=== PATIENT | male | born 1940 | race Caucasian/White ===

== ENCOUNTER 2017-04-15 09:25 | Inpatient (IN) | payer MEDICARE, OTHER ==
[2017-04-15] MEDS ORDERED: SODIUM CHLORIDE 0.9% 1,000 ML IV STA (10:25)
[2017-04-15] MEDS ORDERED: SODIUM CHLORIDE 0.9% 500 ML IV STA (10:25)
--- NOTE | 2017-04-15 10:28 | ED ---
Weakness HPI - General Chief complaint: Weakness Stated complaint: WEAKNESS, CHEST PRESSURE Time Seen by Provider: 04/15/17 10:00 Source: patient, RN notes reviewed Limitations: no limitations - History of Present Illness Initial comments: This is a 76-year-old male who came to the emergency department for evaluation of feeling bad for the past 3 days he has generalized weakness cough with phlegm he's not sure what color shortness of breath lethargy some chest pain with breathing and exertion. 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 He is a decreased oral intake. No other complaints at this time MD Complaint: generalized weakness - Related Data Home Medications Medication Instructions Recorded Confirmed Atorvastatin [Lipitor] 20 mg PO MOFR@2100 11/16/15 04/15/17 Cetirizine HCl 10 mg PO DAILY 11/16/15 04/15/17 Cholecalciferol [Vitamin D3] 2,000 unit PO DAILY 11/16/15 04/15/17 Finasteride [Proscar] 5 mg PO DAILY 11/16/15 04/15/17 Losartan Potassium 100 mg PO HS 11/16/15 04/15/17 Metoprolol Tartrate [Lopressor] 50 mg PO BID 11/16/15 04/15/17 Multivitamins, Thera [Multivitamin] 1 tab PO DAILY 11/16/15 04/15/17 [place]-3 Fatty Acids/Fish Oil [Fish 1 cap PO DAILY 11/16/15 04/15/17 Oil 1,000 mg Softgel] Vitamin E 1,000 unit PO DAILY 11/16/15 04/15/17 Clopidogrel [Plavix] 75 mg PO DAILY 04/15/17 04/15/17 Hylands Leg Cramps Otc 1 tab PO DAILY PRN 04/15/17 04/15/17 Allergies Allergy/AdvReac Type Severity Reaction Status Date / Time Plolbbo-Lex-Lug Reductase AdvReac LEG CRAMPS Verified 04/15/17 10:17 Inhibitor Review of Systems ROS Statement: Those systems with pertinent positive or pertinent negative responses have been documented in the HPI. ROS Other: All systems not noted in ROS Statement are negative. Past Medical History Past Medical History: Hyperlipidemia, Hypertension, Myocardial Infarction (CT) Additional Past Medical History / Comment(s): UNKNOWN DATE OF CT, ENVIRONMENTAL ALLERGIES, BACK PAIN. , LEFT INGUINAL HERNIA. 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 Last Myocardial Infarction Date:: UNKNOWN History of Any Multi-Drug Resistant Organisms: None Reported Past Surgical History: Heart Catheterization, Heart Catheterization With Stent, Orthopedic Surgery, Tonsillectomy Additional Past Surgical History / Comment(s): JONY SHOULDER SURGERIES, VASECTOMY , . HEART CATH WITH STENT FEB 2001, HEART CATH 2001, 2002 & 2008. Past Anesthesia/Blood Transfusion Reactions: No Reported Reaction Date of Last Stent Placement:: FEBRUARY 2001 Past Psychological History: No Psychological Hx Reported Smoking Status: Former smoker Past Alcohol Use History: Daily Past Drug Use History: None Reported - Past Family History Mother Family Medical History: No Reported History General Exam - General Exam Comments Initial Comments: This is a well-developed well-nourished awake alert oriented 3 male Limitations: no limitations General appearance: alert, in no apparent distress Head exam: Present: atraumatic, normocephalic, normal inspection Eye exam: Present: normal appearance, PERRL, EOMI. Absent: scleral icterus, conjunctival injection, periorbital swelling ENT exam: Present: mucous membranes dry Neck exam: Present: normal inspection. Absent: tenderness, meningismus, lymphadenopathy Respiratory exam: Present: decreased breath sounds, other (Some right-sided wheezes with cough). Absent: respiratory distress, wheezes, rales, rhonchi, stridor Cardiovascular Exam: Present: normal rhythm, tachycardia, normal heart sounds. Absent: systolic murmur, diastolic murmur, rubs, gallop, clicks GI/Abdominal exam: Present: soft, normal bowel sounds. Absent: distended, tenderness, guarding, rebound, rigid Extremities exam: Present: normal inspection, full ROM, normal capillary refill. Absent: tenderness, pedal edema, joint swelling, calf tenderness Back exam: Present: normal inspection Neurological exam: Present: alert, oriented X3, CN II-XII intact Psychiatric exam: Present: normal affect, normal mood Skin exam: Present: warm, dry, intact, normal color. Absent: rash Course Vital Signs 04/15/17 04/15/17 04/15/17 09:38 10:03 10:38 Temperature 100.7 F H Pulse Rate 95 93 Respiratory 18 Rate Blood Pressure 175/85 147/85 O2 Sat by Pulse 97 93 L Oximetry 04/15/17 04/15/17 04/15/17 11:21 12:20 14:39 Temperature 99.9 F H Pulse Rate 91 89 85 Respiratory 20 18 18 Rate Blood Pressure 157/84 127/93 149/96 O2 Sat by Pulse 99 96 98 Oximetry EKG Findings - EKG Results: EKG: interpreted by ABUNDIO, sinus rhythm (Sinus tachycardia rate of 101. Interval 140 QRS duration 70 QT since QTC of 340/440 frequent unifocal PVCs) Medical Decision Making - Medical Decision Making I did discuss findings with the patient and with Dr. Laguerre. Patient be admitted he does have influenza as well as elevated troponin dehydration and renal insufficiency. - Lab Data Result diagrams: 04/15/17 10:00 04/15/17 10:00 Lab Results 04/15/17 04/15/17 04/15/17 Range/Units 10:00 10:00 10:00 WBC 4.8 (3.8-10.6) k/uL RBC 4.65 (4.30-5.90) m/uL Hgb 15.1 (13.0-17.5) gm/dL Hct 44.9 (39.0-53.0) % MCV 96.5 (80.0-100.0) fL MCH 32.4 (25.0-35.0) pg MCHC 33.6 (31.0-37.0) g/dL RDW 12.2 (11.5-15.5) % Plt Count 102 L (150-450) k/uL Neutrophils % 84 % Lymphocytes % 5 % Monocytes % 8 % Eosinophils % 0 % Basophils % 1 % Neutrophils # 4.0 (1.3-7.7) k/uL Lymphocytes # 0.3 L (1.0-4.8) k/uL Monocytes # 0.4 (0-1.0) k/uL Eosinophils # 0.0 (0-0.7) k/uL Basophils # 0.0 (0-0.2) k/uL PT (9.0-12.0) sec INR (<1.2) APTT (22.0-30.0) sec Sodium 140 (137-145) mmol/L Potassium 4.9 (3.5-5.1) mmol/L Chloride 101 (98-107) mmol/L Carbon Dioxide 25 (22-30) mmol/L Anion Gap 14 mmol/L BUN 20 (9-20) mg/dL Creatinine 1.50 H (0.66-1.25) mg/dL Est GFR (MDRD) Af Amer 55 (>60 ml/min/1.73 sqM) Est GFR (MDRD) Non-Af 46 (>60 ml/min/1.73 sqM) Glucose 130 H (74-99) mg/dL Plasma Lactic Acid John (0.7-2.0) mmol/L Calcium 9.8 (8.4-10.2) mg/dL Magnesium 1.9 (1.6-2.3) mg/dL Total Bilirubin 0.9 (0.2-1.3) mg/dL AST 39 (17-59) U/L ALT 29 (21-72) U/L Alkaline Phosphatase 52 (38-126) U/L Total Creatine Kinase 314 H (55-170) U/L CK-MB (CK-2) 0.7 (0.0-2.4) ng/mL CK-MB (CK-2) Rel Index 0.2 Troponin I 0.038 H* (0.000-0.034) ng/mL NT-Pro-B Natriuret Pep pg/mL Total Protein 6.8 (6.3-8.2) g/dL Albumin 4.3 (3.5-5.0) g/dL Influenza Type A RNA (Not Detectd) Influenza Type B (PCR) (Not Detectd) 04/15/17 04/15/17 04/15/17 Range/Units 10:00 10:00 10:00 WBC (3.8-10.6) k/uL RBC (4.30-5.90) m/uL Hgb (13.0-17.5) gm/dL Hct (39.0-53.0) % MCV (80.0-100.0) fL MCH (25.0-35.0) pg MCHC (31.0-37.0) g/dL RDW (11.5-15.5) % Plt Count (150-450) k/uL Neutrophils % % Lymphocytes % % Monocytes % % Eosinophils % % Basophils % % Neutrophils # (1.3-7.7) k/uL Lymphocytes # (1.0-4.8) k/uL Monocytes # (0-1.0) k/uL Eosinophils # (0-0.7) k/uL Basophils # (0-0.2) k/uL PT (9.0-12.0) sec INR (<1.2) APTT (22.0-30.0) sec Sodium (137-145) mmol/L Potassium (3.5-5.1) mmol/L Chloride (98-107) mmol/L Carbon Dioxide (22-30) mmol/L Anion Gap mmol/L BUN (9-20) mg/dL Creatinine (0.66-1.25) mg/dL Est GFR (MDRD) Af Amer (>60 ml/min/1.73 sqM) Est GFR (MDRD) Non-Af (>60 ml/min/1.73 sqM) Glucose (74-99) mg/dL Plasma Lactic Acid John 1.2 (0.7-2.0) mmol/L Calcium (8.4-10.2) mg/dL Magnesium (1.6-2.3) mg/dL Total Bilirubin (0.2-1.3) mg/dL AST (17-59) U/L ALT (21-72) U/L Alkaline Phosphatase (38-126) U/L Total Creatine Kinase (55-170) U/L CK-MB (CK-2) (0.0-2.4) ng/mL CK-MB (CK-2) Rel Index Troponin I (0.000-0.034) ng/mL NT-Pro-B Natriuret Pep 1060 pg/mL Total Protein (6.3-8.2) g/dL Albumin (3.5-5.0) g/dL Influenza Type A RNA Detected H (Not Detectd) Influenza Type B (PCR) Not Detected (Not Detectd) 04/15/17 Range/Units 10:00 WBC (3.8-10.6) k/uL RBC (4.30-5.90) m/uL Hgb (13.0-17.5) gm/dL Hct (39.0-53.0) % MCV (80.0-100.0) fL MCH (25.0-35.0) pg MCHC (31.0-37.0) g/dL RDW (11.5-15.5) % Plt Count (150-450) k/uL Neutrophils % % Lymphocytes % % Monocytes % % Eosinophils % % Basophils % % Neutrophils # (1.3-7.7) k/uL Lymphocytes # (1.0-4.8) k/uL Monocytes # (0-1.0) k/uL Eosinophils # (0-0.7) k/uL Basophils # (0-0.2) k/uL PT 10.4 (9.0-12.0) sec INR 1.1 (<1.2) APTT 24.5 (22.0-30.0) sec Sodium (137-145) mmol/L Potassium (3.5-5.1) mmol/L Chloride (98-107) mmol/L Carbon Dioxide (22-30) mmol/L Anion Gap mmol/L BUN (9-20) mg/dL Creatinine (0.66-1.25) mg/dL Est GFR (MDRD) Af Amer (>60 ml/min/1.73 sqM) Est GFR (MDRD) Non-Af (>60 ml/min/1.73 sqM) Glucose (74-99) mg/dL Plasma Lactic Acid John (0.7-2.0) mmol/L Calcium (8.4-10.2) mg/dL Magnesium (1.6-2.3) mg/dL Total Bilirubin (0.2-1.3) mg/dL AST (17-59) U/L ALT (21-72) U/L Alkaline Phosphatase (38-126) U/L Total Creatine Kinase (55-170) U/L CK-MB (CK-2) (0.0-2.4) ng/mL CK-MB (CK-2) Rel Index Troponin I (0.000-0.034) ng/mL NT-Pro-B Natriuret Pep pg/mL Total Protein (6.3-8.2) g/dL Albumin (3.5-5.0) g/dL Influenza Type A RNA (Not Detectd) Influenza Type B (PCR) (Not Detectd) - Radiology Data Radiology results: report reviewed, image reviewed Disposition Clinical Impression: Influenza A, Febrile illness, acute, Elevated troponin I level, Dehydration, Renal insufficiency syndrome Disposition: ADMITTED IP TO THIS [facility] Condition: Stable Referrals: Ramya James DO [Primary Care Provider] - 1-2 days
[2017-04-15 10:56] LABS: INR 1.1 (<1.2); Partial Thromboplastin Time 24.5 sec (22.0-30.0); Prothrombin Time 10.4 sec (9.0-12.0)
[2017-04-15 10:59] LABS: Albumin 4.3 g/dL (3.5-5.0); Calcium 9.8 mg/dL (8.4-10.2); Magnesium 1.9 mg/dL (1.6-2.3); Potassium 4.9 mmol/L (3.5-5.1); Total Bilirubin 0.9 mg/dL (0.2-1.3); Total Protein 6.8 g/dL (6.3-8.2)
--- NOTE | 2017-04-15 11:03 | XR ---
EXAMINATION TYPE: XR chest 2V DATE OF EXAM: 04/15/2017 COMPARISON: NONE TECHNIQUE: PA and lateral views submitted. HISTORY: Difficulty breathing FINDINGS: The lungs are clear and there is no pneumothorax, pleural effusion, or focal pneumonia. Hypertrophi c change of the spine. Surgical change right shoulder and arthropathy involving the AC joints. Athero sclerotic change aorta. No overt failure. IMPRESSION: 1. No acute process.
[2017-04-15 11:13] LABS: Basophils % (A) 1 %; Eosinophils % (A) 0 %; HCT 44.9 % (39.0-53.0); HGB 15.1 gm/dL (13.0-17.5); Lymphocytes # (A) 0.3 k/uL (1.0-4.8); Lymphocytes % (A) 5 %; MCH 32.4 pg (25.0-35.0); MCHC 33.6 g/dL (31.0-37.0); MCV 96.5 fL (80.0-100.0); Mean Platelet Volume 8.4; Monocytes # (A) 0.4 k/uL (0-1.0); Monocytes % (A) 8 %; Neutrophils % (A) 84 %; Platelet Count 102 k/uL (150-450); RBC 4.65 m/uL (4.30-5.90); RDW 12.2 % (11.5-15.5); WBC 4.8 k/uL (3.8-10.6)
[2017-04-15 11:27] LABS: Creatine Kinase MB 0.7 ng/mL (0.0-2.4)
[2017-04-15 11:37] LABS: Troponin I 0.038 ng/mL (0.000-0.034)
[2017-04-15] MEDS ORDERED: OSELTAMIVIR 75 MG CAP PO STA (15:31)
[2017-04-15] MEDS ORDERED: NALOXONE 0.4 MG/ML 1 ML VIAL IV PRN (16:12)
[2017-04-15] MEDS ORDERED: ACETAMINOPHEN TAB 325 MG TAB PO PRN (16:12)
[2017-04-15] MEDS ORDERED: HEPARIN SODIUM,PORCINE 5,000 UNIT/ML 1 ML VIAL IV ONE (16:17)
[2017-04-15] MEDS ORDERED: NITROGLYCERIN SL TABS 0.4 MG TAB SUBLINGUAL PRN (16:17)
[2017-04-15] MEDS: HEPARIN SOD,PORK IN 0.45% NACL 25,000 UNIT in 0.45% NACL 1 500ML.BAG IV SCH (17:45)
[2017-04-15] MEDS: SODIUM CHLORIDE 0.9% 1,000 ML IV SCH (18:41)
[2017-04-15 19:04] LABS: Creatine Kinase MB 1.3 ng/mL (0.0-2.4); Troponin I 0.025 ng/mL (0.000-0.034)
[2017-04-15] MEDS ORDERED: ATORVASTATIN 20 MG TAB PO SCH (21:00)
[2017-04-15] MEDS: METOPROLOL TARTRATE 50 MG TAB PO SCH (21:15)
[2017-04-15] MEDS: LOSARTAN 50 MG TAB PO SCH (21:15)
[2017-04-16 00:11] LABS: Creatine Kinase MB 1.8 ng/mL (0.0-2.4); Troponin I 0.033 ng/mL (0.000-0.034)
[2017-04-16] MEDS ORDERED: OSELTAMIVIR 60 MG/10 ML ORAL SYRINGE PO SCH (06:00)
[2017-04-16 06:02] LABS: Cholesterol 115 mg/dL (<200); HDL Cholesterol 51 mg/dL (40-60); LDL Cholesterol,Calculated 53 mg/dL (0-99); Triglycerides 54 mg/dL (<150)
[2017-04-16] MEDS: SODIUM CHLORIDE 0.9% 1,000 ML IV SCH ×2 (06:11→17:54)
[2017-04-16] MEDS: ASPIRIN 325 MG TAB PO SCH (07:48)
[2017-04-16] MEDS: CLOPIDOGREL 75 MG TAB PO SCH (07:48)
[2017-04-16] MEDS: FINASTERIDE 5 MG TAB PO SCH (07:49)
[2017-04-16] MEDS: METOPROLOL TARTRATE 50 MG TAB PO SCH ×2 (07:49→19:58)
[2017-04-16 09:32] LABS: Basophils % (A) 0 %; Eosinophils % (A) 1 %; HCT 41.7 % (39.0-53.0); HGB 14.2 gm/dL (13.0-17.5); Lymphocytes # (A) 0.6 k/uL (1.0-4.8); Lymphocytes % (A) 20 %; MCH 32.6 pg (25.0-35.0); MCV 95.8 fL (80.0-100.0); Mean Platelet Volume 8.8; Monocytes # (A) 0.3 k/uL (0-1.0); Monocytes % (A) 11 %; Neutrophils # (A) 1.8 k/uL (1.3-7.7); Neutrophils % (A) 64 %; RBC 4.36 m/uL (4.30-5.90); RDW 12.3 % (11.5-15.5); WBC 2.7 k/uL (3.8-10.6)
[2017-04-16 09:48] LABS: Platelet Count 85 k/uL (150-450)
[2017-04-16 09:54] LABS: ALT 34 U/L (21-72); AST 45 U/L (17-59); Albumin 3.5 g/dL (3.5-5.0); Alkaline Phosphatase 44 U/L (38-126); Anion Gap 12 mmol/L; Blood Urea Nitrogen 24 mg/dL (9-20); Calcium 9.2 mg/dL (8.4-10.2); Carbon Dioxide 24 mmol/L (22-30); Chloride 105 mmol/L (98-107); Glucose 101 mg/dL (74-99); Potassium 4.3 mmol/L (3.5-5.1); Sodium 141 mmol/L (137-145); Total Bilirubin 0.5 mg/dL (0.2-1.3); Total Protein 5.7 g/dL (6.3-8.2)
--- NOTE | 2017-04-16 10:28 | P.HPIM ---
History of Present Illness H&P Date: 04/16/17 Chief Complaint: Cough and shortness of breath This is a 76-year-old male, patient of Dr. James. He has a known past medical history of hypertension, myocardial infarction, coronary artery disease with cardiac stent and hyperlipidemia. Patient presents to the emergency room with complaints of cough and shortness of breath and not feeling well for the past 3 days. Also having some generalized weakness. He's had 2 days of diarrhea with multiple watery stools. Last stool was yesterday. No vomiting. Patient has been admitted to the hospital with influenza A and dehydration. She 's been started on Tamiflu and IV fluids. He had a temp of 100.7 lactic acid was 1.2. Creatinine elevated at 1.50. He had a mildly elevated troponin 0.038 cardiology consulted. Chest x-ray negative. EKG showing sinus tach with a heart rate of 101 with occasional PVCs. Patient denies any chest pain. Denies any burning with urination. Reports adequate urine output. He does report having poor oral intake over a couple of days. Patient reports last stress test was last year and reported normal. Heart catheterization was in 2008 no new stents at that time. He did report that his one stent was completely occluded. Review of Systems Please refer to HPI otherwise unremarkable Past Medical History Past Medical History: Hyperlipidemia, Hypertension, Myocardial Infarction (DC) Additional Past Medical History / Comment(s): UNKNOWN DATE OF DC, ENVIRONMENTAL ALLERGIES, BACK PAIN. , LEFT INGUINAL HERNIA. 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 Last Myocardial Infarction Date:: UNKNOWN History of Any Multi-Drug Resistant Organisms: None Reported Past Surgical History: Heart Catheterization, Heart Catheterization With Stent, Orthopedic Surgery, Tonsillectomy Additional Past Surgical History / Comment(s): JONY SHOULDER SURGERIES, VASECTOMY , . HEART CATH WITH STENT FEB 2001, HEART CATH 2001, 2002 & 2008. Past Anesthesia/Blood Transfusion Reactions: No Reported Reaction Date of Last Stent Placement:: FEBRUARY 2001 Past Psychological History: No Psychological Hx Reported Smoking Status: Former smoker Past Alcohol Use History: Daily Additional Past Alcohol Use History / Comment(s): SMOKED 23 YEARS, QUIT May. SMOKED 2 1/2 PPD. DRINKS 2-3 GLASSES OF WINE DAILY. Past Drug Use History: None Reported - Past Family History Mother Family Medical History: No Reported History Medications and Allergies Home Medications Medication Instructions Recorded Confirmed Type Atorvastatin [Lipitor] 20 mg PO MOFR@2100 11/16/15 04/15/17 History Cetirizine HCl 10 mg PO DAILY 11/16/15 04/15/17 History Cholecalciferol [Vitamin D3] 2,000 unit PO DAILY 11/16/15 04/15/17 History Finasteride [Proscar] 5 mg PO DAILY 11/16/15 04/15/17 History Losartan Potassium 100 mg PO HS 11/16/15 04/15/17 History Metoprolol Tartrate [Lopressor] 50 mg PO BID 11/16/15 04/15/17 History Multivitamins, Thera [Multivitamin] 1 tab PO DAILY 11/16/15 04/15/17 History [place]-3 Fatty Acids/Fish Oil [Fish 1 cap PO DAILY 11/16/15 04/15/17 History Oil 1,000 mg Softgel] Vitamin E 1,000 unit PO DAILY 11/16/15 04/15/17 History Clopidogrel [Plavix] 75 mg PO DAILY 04/15/17 04/15/17 History Hylands Leg Cramps Otc 1 tab PO DAILY PRN 04/15/17 04/15/17 History Allergies Allergy/AdvReac Type Severity Reaction Status Date / Time Zmqmysg-Uah-Eer Reductase AdvReac LEG CRAMPS Verified 04/15/17 10:17 Inhibitor Physical Exam Vitals: Vital Signs Temp Pulse Pulse Resp BP BP Pulse Ox 04/16/17 08:00 65 16 04/16/17 07:58 97.3 F L 65 16 135/81 96 04/16/17 04:00 97.1 F L 68 18 138/79 94 L 04/16/17 00:00 96.5 F L 82 18 160/84 94 L 04/15/17 20:00 99 F 91 18 130/73 96 04/15/17 17:53 97.6 F 76 18 166/86 98 04/15/17 16:52 97.2 F L 80 18 164/86 100 04/15/17 16:31 76 18 148/79 98 04/15/17 15:31 18 152/84 98 04/15/17 14:39 99.9 F H 85 18 149/96 98 04/15/17 12:20 89 18 127/93 96 04/15/17 11:21 91 20 157/84 99 02/12/18 10:38 93 18 147/85 93 L Intake and Output 04/15/17 04/16/17 04/16/17 22:59 06:59 14:59 Intake Total 68.392 Balance 68.392 Intake: Intake, IV Titration 68.392 Amount Heparin Sod,Pork in 0.45% 68.392 NaCl 25,000 unit In 0.45 % NaCl 1 500ml.bag @ 12 UNITS/KG/HR 19.92 mls/hr IV .Q24H [facility] Rx#: [id number] Other: Voiding Method Toilet Toilet # Voids 1 2 # Bowel Movements 1 Weight 73.3 kg Head normocephalic Neck supple Lungs clear to auscultation bilaterally no wheezing or crackles Heart regular rate and rhythm S1-S2, no rub or gallop Abdomen is soft nontender nondistended positive bowel sounds no hepatosplenomegaly Extremities no edema Neuro alert and orientated to 3 Results CBC & Chem 7: 04/16/17 03:34 04/16/17 03:34 Labs: Abnormal Lab Results - Last 24 Hours (Table) 04/15/17 04/15/17 04/15/17 Range/Units 10:00 10:00 10:00 WBC (3.8-10.6) k/uL Plt Count 102 L (150-450) k/uL Lymphocytes # 0.3 L (1.0-4.8) k/uL APTT (22.0-30.0) sec BUN (9-20) mg/dL Creatinine 1.50 H (0.66-1.25) mg/dL Glucose 130 H (74-99) mg/dL Total Creatine Kinase 314 H (55-170) U/L Troponin I 0.038 H* (0.000-0.034) ng/mL Total Protein (6.3-8.2) g/dL Influenza Type A RNA (Not Detectd) 04/15/17 04/15/17 04/15/17 Range/Units 10:00 18:22 20:14 WBC (3.8-10.6) k/uL Plt Count (150-450) k/uL Lymphocytes # (1.0-4.8) k/uL APTT 118.4 H* (22.0-30.0) sec BUN (9-20) mg/dL Creatinine (0.66-1.25) mg/dL Glucose (74-99) mg/dL Total Creatine Kinase 349 H (55-170) U/L Troponin I (0.000-0.034) ng/mL Total Protein (6.3-8.2) g/dL Influenza Type A RNA Detected H (Not Detectd) 04/15/17 04/16/17 04/16/17 Range/Units 23:03 03:34 03:34 WBC 2.7 L (3.8-10.6) k/uL Plt Count 85 L (150-450) k/uL Lymphocytes # 0.6 L (1.0-4.8) k/uL APTT 56.0 H (22.0-30.0) sec BUN (9-20) mg/dL Creatinine (0.66-1.25) mg/dL Glucose (74-99) mg/dL Total Creatine Kinase 400 H (55-170) U/L Troponin I (0.000-0.034) ng/mL Total Protein (6.3-8.2) g/dL Influenza Type A RNA (Not Detectd) 04/16/17 Range/Units 03:34 WBC (3.8-10.6) k/uL Plt Count (150-450) k/uL Lymphocytes # (1.0-4.8) k/uL APTT (22.0-30.0) sec BUN 24 H (9-20) mg/dL Creatinine (0.66-1.25) mg/dL Glucose 101 H (74-99) mg/dL Total Creatine Kinase (55-170) U/L Troponin I (0.000-0.034) ng/mL Total Protein 5.7 L (6.3-8.2) g/dL Influenza Type A RNA (Not Detectd) Thrombosis Risk Factor Assmnt - Choose All That Apply Any of the Below Risk Factors Present?: Yes Each Factor Represents 1 point: Obesity (BMI >25) Other Risk Factors: Yes Each Risk Factor Represents 3 Points: Age 75 years or older Thrombosis Risk Factor Assessment Total Risk Factor Score: 4 Thrombosis Risk Factor Assessment Level: Moderate Risk Assessment and Plan Assessment: 1. Influenza A positive: Started on Tamiflu for 5 days 2. Acute kidney injury secondary to dehydration. Patient receiving IV fluids. Creatinine has shown improvement from 1.50-1.08 3. Mildly elevated troponin at 0.038. Possibly related to dehydration and acute kidney injury. However, patient does have cardiac history he will be evaluated by cardiology is currently on IV heparin. 4. Diarrhea: Check stool for C. diff and neurovirus. Continue with IV fluids. 5. Essential hypertension 6. Hyperlipidemia 7. History of Coronary artery disease with cardiac stent and previous DC GI prophylaxis Pepcid and DVT prophylaxis IV heparin Time with Patient: Greater than 30 (Greater than 50% of the total time spent in counseling and coordination of care.I performed an examination of the patient and discussed their management with the physician Regroover. I have reviewed the Physician Regroover's notes and agree with the documented findings and plan of care)
[2017-04-16] MEDS: LORATADINE 10 MG TAB PO SCH (11:23)
[2017-04-16] MEDS ORDERED: MULTIVITAMINS, THERA 1 EACH TAB PO SCH (12:00)
[2017-04-16] MEDS ORDERED: CHOLECALCIFEROL 1,000 UNIT TAB PO SCH (12:00)
[2017-04-16] MEDS: HEPARIN SOD,PORK IN 0.45% NACL 25,000 UNIT in 0.45% NACL 1 500ML.BAG IV SCH (15:07)
[2017-04-16] MEDS: OSELTAMIVIR 75 MG CAP PO SCH (17:55)
[2017-04-16] MEDS: LOSARTAN 50 MG TAB PO SCH (19:58)
[2017-04-17 06:08] LABS: Basophils % (A) 1 %; Eosinophils # (A) 0.1 k/uL (0-0.7); Eosinophils % (A) 2 %; HCT 39.3 % (39.0-53.0); HGB 12.7 gm/dL (13.0-17.5); Lymphocytes # (A) 0.6 k/uL (1.0-4.8); Lymphocytes % (A) 24 %; MCH 32.2 pg (25.0-35.0); MCHC 32.4 g/dL (31.0-37.0); MCV 99.2 fL (80.0-100.0); Mean Platelet Volume 8.2; Monocytes # (A) 0.3 k/uL (0-1.0); Monocytes % (A) 10 %; Neutrophils # (A) 1.7 k/uL (1.3-7.7); Neutrophils % (A) 63 %; RBC 3.96 m/uL (4.30-5.90); WBC 2.7 k/uL (3.8-10.6)
[2017-04-17 06:19] LABS: Platelet Count 78 k/uL (150-450)
[2017-04-17 06:20] LABS: ALT 33 U/L (21-72); AST 42 U/L (17-59); Alkaline Phosphatase 33 U/L (38-126); Anion Gap 10 mmol/L; Blood Urea Nitrogen 17 mg/dL (9-20); Calcium 8.8 mg/dL (8.4-10.2); Carbon Dioxide 23 mmol/L (22-30); Chloride 109 mmol/L (98-107); Glucose 96 mg/dL (74-99); Potassium 4.1 mmol/L (3.5-5.1); Sodium 142 mmol/L (137-145); Total Bilirubin 0.4 mg/dL (0.2-1.3); Total Protein 5.1 g/dL (6.3-8.2)
[2017-04-17] MEDS: OSELTAMIVIR 75 MG CAP PO SCH (06:22)
[2017-04-17] MEDS: SODIUM CHLORIDE 0.9% 1,000 ML IV SCH (06:22)
[2017-04-17] MEDS: ASPIRIN 325 MG TAB PO SCH (07:47)
[2017-04-17] MEDS: LORATADINE 10 MG TAB PO SCH (07:48)
[2017-04-17] MEDS: FINASTERIDE 5 MG TAB PO SCH (07:48)
[2017-04-17] MEDS: CLOPIDOGREL 75 MG TAB PO SCH (07:48)
[2017-04-17] MEDS: METOPROLOL TARTRATE 50 MG TAB PO SCH (07:48)
[2017-04-17 07:56] VITALS: BP 144/78; PULSE 72; RESP 14; TEMP 97.4
[2017-04-17] MEDS ORDERED: FAMOTIDINE 20 MG TAB PO SCH (09:00)
--- NOTE | 2017-04-17 09:40 | P.DS ---
Providers Date of admission: 04/16/17 13:43 Expected date of discharge: 04/17/17 Attending physician: Juan Laguerre Consults: 04/15/17 16:17 Consult Physician Urgent Consulting Provider: Benito Dave Consult Reason/Comments: Chest pain, elevated troponin Do you want consulting provider notified?: Yes Primary care physician: Ramya Erika [facility] Course: Diagnosis on discharge: 1. Influenza A positive: Started on Tamiflu for 5 days 2. Acute kidney injury secondary to dehydration. Patient receiving IV fluids. Creatinine has shown improvement from 1.50-1.08 3. Mildly elevated troponin at 0.038. Possibly related to dehydration and acute kidney injury. He was evaluated by cardiology as this morning and was cleared for discharge. 4. Diarrhea: Check stool for C. diff and neurovirus. Continue with IV fluids. 5. Essential hypertension 6. Hyperlipidemia 7. History of Coronary artery disease with cardiac stent and previous [place] Hospital course: This is a 76-year-old male, patient of Dr. James. He has a known past medical history of hypertension, myocardial infarction, coronary artery disease with cardiac stent and hyperlipidemia. Patient presents to the emergency room with complaints of cough and shortness of breath and not feeling well for the past 3 days. Also having some generalized weakness. He's had 2 days of diarrhea with multiple watery stools. Last stool was yesterday. No vomiting. Patient has been admitted to the hospital with influenza A and dehydration. She 's been started on Tamiflu and IV fluids. He had a temp of 100.7 lactic acid was 1.2. Creatinine elevated at 1.50. He had a mildly elevated troponin 0.038 cardiology consulted. Chest x-ray negative. EKG showing sinus tach with a heart rate of 101 with occasional PVCs. Patient denies any chest pain. Denies any burning with urination. Reports adequate urine output. He does report having poor oral intake over a couple of days. Patient reports last stress test was last year and reported normal. Heart catheterization was in 2008 no new stents at that time. He did report that his one stent was completely occluded. On 04/17/2017 patient is feeling much better he is alert and oriented 3 he denies any fever or chills his cough has improved significantly there is no chest pain or shortness of breath no nausea or vomiting no abdominal pain and diarrhea has resolved since yesterday, he was evaluated by cardiology as this morning and was cleared for discharge. Patient will continue the rest of his Tamiflu course he will follow-up with his primary care physician Dr. Ramya James in 2-3 days Patient Condition at Discharge: Stable Plan - Discharge Summary Discharge Rx Participant: Yes New Discharge Prescriptions: New Aspirin 325 mg PO DAILY tab Oseltamivir [Tamiflu] 75 mg PO Q12H cap Continue Vitamin E 1,000 unit PO DAILY Cholecalciferol [Vitamin D3] 2,000 unit PO DAILY Cetirizine HCl 10 mg PO DAILY [place]-3 Fatty Acids/Fish Oil [Fish Oil 1,000 mg Softgel] 1 cap PO DAILY Multivitamins, Thera [Multivitamin (formulary)] 1 tab PO DAILY Metoprolol Tartrate [Lopressor] 50 mg PO BID Losartan Potassium 100 mg PO HS Finasteride [Proscar] 5 mg PO DAILY Atorvastatin [Lipitor] 20 mg PO MOFR@2100 Clopidogrel [Plavix] 75 mg PO DAILY Hylands Leg Cramps Otc 1 tab PO DAILY PRN PRN Reason: legcramps Discharge Medication List Atorvastatin [Lipitor] 20 mg PO MOFR@2100 11/16/15 [History] Cetirizine HCl 10 mg PO DAILY 11/16/15 [History] Cholecalciferol [Vitamin D3] 2,000 unit PO DAILY 11/16/15 [History] Finasteride [Proscar] 5 mg PO DAILY 11/16/15 [History] Losartan Potassium 100 mg PO HS 11/16/15 [History] Metoprolol Tartrate [Lopressor] 50 mg PO BID 11/16/15 [History] Multivitamins, Thera [Multivitamin (formulary)] 1 tab PO DAILY 11/16/15 [History ] [place]-3 Fatty Acids/Fish Oil [Fish Oil 1,000 mg Softgel] 1 cap PO DAILY [History] Vitamin E 1,000 unit PO DAILY 11/16/15 [History] Clopidogrel [Plavix] 75 mg PO DAILY 04/15/17 [History] Hylands Leg Cramps Otc 1 tab PO DAILY PRN 04/15/17 [History] Aspirin 325 mg PO DAILY tab 04/17/17 [Rx] Oseltamivir [Tamiflu] 75 mg PO Q12H cap 02/14/18 [Rx] Follow up Appointment(s)/Referral(s): Ramya James DO [Primary Care Provider] - 1-2 days Patient Instructions/Handouts: Dehydration (DC), Acute Kidney Injury (DC), Influenza (DC)
--- NOTE | 2017-04-17 12:04 | ECHOF ---
Referral Reason:abn trop MEASUREMENTS -------- HEIGHT: 177.8 cm WEIGHT: 73.0 kg BP: 144/73 RVIDd: 3.2 cm (< 3.3) IVSd: 1.0 cm (0.6 - 1.1) LVIDd: 4.9 cm (3.9 - 5.3) LVPWd: 1.0 cm (0.6 - 1.1) IVSs: 1.4 cm LVIDs: 3.5 cm LVPWs: 1.4 cm LAESV Index (A-L): 25.65 ml/m Ao Diam: 3.7 cm (2.0 - 3.7) AV Cusp: 1.4 cm (1.5 - 2.6) LA Diam: 3.3 cm (2.7 - 3.8) MV E Ryland: 0.85 m/s MV DecT: 220 ms MV A Ryland: 0.98 m/s MV E/A Ratio: 0.86 AV maxP.50 mmHg AV meanP.61 mmHg RAP: 5.00 mmHg RVSP: 14.14 mmHg MV EF SLOPE: 115.52 mm/s (70 - 150) MV EXCURSION: 1.61 cm (> 18.000) FINDINGS -------- Sinus rhythm. This was a technically adequate study. The left ventricular size is normal. Left ventricular wall thickness is normal. Overall left vent ricular systolic function is normal with, an EF between 55 - 60 %. The right ventricle is normal in size. Normal LA size by volume 22+/-6 ml/m2. The right atrium is normal in size. There is mild to moderate aortic valve sclerosis. There is mild aortic regurgitation. There is mi ld aortic stenosis present. Peak/mean gradient across the Aortic Valve is 12.50mmHg / 6.61mmHg. Mild mitral annular calcification present. Mild mitral regurgitation is present. Trace tricuspid regurgitation present. Right ventricular systolic pressure is normal at < 35 mmHg. There is no evidence of pulmonary hypertension. The pulmonic valve was not well visualized. There is no pulmonic regurgitation present. The aortic root size is normal. IVC Not well visulized. There is no pericardial effusion. CONCLUSIONS -------- 1. Sinus rhythm. 2. This was a technically adequate study. 3. The left ventricular size is normal. 4. Left ventricular wall thickness is normal. 5. Overall left ventricular systolic function is normal with, an EF between 55 - 60 %. 6. The right ventricle is normal in size. 7. Normal LA size by volume 22+/-6 ml/m2. 8. There is mild to moderate aortic valve sclerosis. 9. There is mild aortic regurgitation. 10. There is mild aortic stenosis present. 11. Peak/mean gradient across the Aortic Valve is 12.50mmHg / 6.61mmHg. 12. Mild mitral annular calcification present. 13. Mild mitral regurgitation is present. 14. Trace tricuspid regurgitation present. 15. Right ventricular systolic pressure is normal at < 35 mmHg. 16. The pulmonic valve was not well visualized. 17. There is no pulmonic regurgitation present. 18. The aortic root size is normal. 19. IVC Not well visulized. 20. There is no pericardial effusion. SIGN DESIGNER: Tank Fish RDCS
== END 2017-04-17 10:43 | disposition home or self-care (01) | DRG 194 ==
LOC: EC 09:25 → UNDOADMOB 16:12 → 4MS4W 16:12 → 6SEL 16:12 → 4MS4W 17:07 → 6SEL 17:19 → OBSVTOIN 04-16 13:43
PROVIDERS: ADMIT Internal Medicine; ATTEND Internal Medicine
DX: J10.1 Influenza due to other identified influenza virus with other respiratory manifestations (principal); N17.9 Acute kidney failure, unspecified; E86.0 Dehydration; I49.3 Ventricular premature depolarization; R00.0 Tachycardia, unspecified; I10 Essential (primary) hypertension; I25.10 Atherosclerotic heart disease of native coronary artery without angina pectoris; E78.5 Hyperlipidemia, unspecified; R19.7 Diarrhea, unspecified; R25.2 Cramp and spasm; Z87.19 Personal history of other diseases of the digestive system; I25.2 Old myocardial infarction; Z98.52 Vasectomy status; Z90.89 Acquired absence of other organs; Z87.891 Personal history of nicotine dependence; Z79.02 Long term (current) use of antithrombotics/antiplatelets; Z79.899 Other long term (current) drug therapy; Z95.5 Presence of coronary angioplasty implant and graft
CPT/HCPCS: 36415; 71046; 80053; 80061; 82550; 82553; 83605; 83735; 83880; 84484; 85025; 85610; 85730; 87040; 87502; 93005; 93306; 96361; 96374; 99285

== ENCOUNTER 2017-11-25 22:10 | Emergency (ER) | payer MEDICARE, OTHER ==
[2017-11-25 22:45] VITALS: TEMP 97.9
--- NOTE | 2017-11-25 23:45 | CT ---
EXAMINATION TYPE: CT brain antoine cates DATE OF EXAM: 11/25/2017 COMPARISON: None HISTORY: Pt. fell and hit his right occipital region of his head. Headache. Neck pain. CT DLP: 1505.00 mGycm Automated exposure control for dose reduction was used. TECHNIQUE: CT scan of the head and cervical spine are performed without contrast. FINDINGS: There is cerebral cortical atrophy. There is no mass effect nor midline shift. There is n o sign of intracranial hemorrhage. The calvarium appears intact. Occipital bone is intact. Cervical vertebra have fairly normal alignment. There is narrowing of disc spaces at C5-6 C6-7 with s purring of the endplates. There is mild spurring also at C4-5. Facet joints are intact. The skull bas e is intact. There is no evidence of cervical spine fracture. IMPRESSION: Spondylotic changes in the cervical spine. No fracture. Cerebral atrophy. No acute intracranial abnormality.
--- NOTE | 2017-11-25 23:47 | ED ---
Fall HPI - General Source: patient Mode of arrival: ambulatory <Annie Menjivar - Last Filed: 11/26/17 04:22> <Sadia Grove - Last Filed: 11/26/17 04:41> - General Chief Complaint: Fall Stated Complaint: fell/hit head Time Seen by Provider: 11/25/17 22:53 - History of Present Illness Initial Comments: 76-year-old male patient presents to the emergency department today for evaluation after sustaining a head injury during a fall. Patient states he was taking his trash out to the road when he slipped and fell backwards striking his head on the cement. Fall occurred approximately an hour prior to arrival. Patient denies any loss of consciousness with this. States that EMS was on scene because they were alerted when his life alert detected the fall. He refused transfer to the emergency department. Patient states he does take Plavix so his stepdaughter wanted him to be seen and evaluated. Patient denies any current headache, blurred vision, double vision, nausea, vomiting, neck pain , or back pain. Patient states he feels "perfectly normal" other than some mild discomfort to his right posterior scalp. Patient denies any chest pain, shortness of breath, dizziness, weakness, abdominal pain, nausea, vomiting, or difficulties with bowel movements or urination. (Annie Menjivar) - Related Data Home Medications Medication Instructions Recorded Confirmed Atorvastatin [Lipitor] 20 mg PO MOFR@2100 11/16/15 11/25/17 Cetirizine HCl 10 mg PO DAILY 11/16/15 11/25/17 Cholecalciferol [Vitamin D3] 2,000 unit PO DAILY 11/16/15 11/25/17 Finasteride [Proscar] 5 mg PO DAILY 11/16/15 11/25/17 Losartan Potassium 100 mg PO HS 11/16/15 11/25/17 Metoprolol Tartrate [Lopressor] 50 mg PO BID 11/16/15 11/25/17 Multivitamins, Thera [Multivitamin 1 tab PO DAILY 11/16/15 11/25/17 (formulary)] Mallard-3 Fatty Acids/Fish Oil [Fish 1 cap PO DAILY 11/16/15 11/25/17 Oil 1,000 mg Softgel] Vitamin E 1,000 unit PO DAILY 11/16/15 11/25/17 Clopidogrel [Plavix] 75 mg PO DAILY 04/15/17 11/25/17 Hylands Leg Cramps Otc 1 tab PO DAILY PRN 04/15/17 11/25/17 Allergies Allergy/AdvReac Type Severity Reaction Status Date / Time [id number] Reductase AdvReac LEG CRAMPS Verified 11/25/17 23:13 Inhibitor Review of Systems ROS Other: All systems not noted in ROS Statement are negative. <Annie Menjivar - Last Filed: 11/26/17 04:22> ROS Other: All systems not noted in ROS Statement are negative. <Sadia Grove - Last Filed: 11/26/17 04:41> ROS Statement: Those systems with pertinent positive or pertinent negative responses have been documented in the HPI. Past Medical History Past Medical History: Hyperlipidemia, Hypertension, Myocardial Infarction (MA) Additional Past Medical History / Comment(s): UNKNOWN DATE OF MA, ENVIRONMENTAL ALLERGIES, BACK PAIN. , LEFT INGUINAL HERNIA. 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 Last Myocardial Infarction Date:: UNKNOWN History of Any Multi-Drug Resistant Organisms: None Reported Past Surgical History: Heart Catheterization, Heart Catheterization With Stent, Orthopedic Surgery, Tonsillectomy Additional Past Surgical History / Comment(s): JONY SHOULDER SURGERIES, VASECTOMY , . HEART CATH WITH STENT FEB 2001, HEART CATH 2001, 2002 & 2008. Past Anesthesia/Blood Transfusion Reactions: No Reported Reaction Date of Last Stent Placement:: FEBRUARY 2001 Past Psychological History: No Psychological Hx Reported Smoking Status: Former smoker Past Alcohol Use History: Daily Past Drug Use History: None Reported - Past Family History Mother Family Medical History: No Reported History <Annie Menjivar - Last Filed: 11/26/17 04:22> General Exam Limitations: no limitations General appearance: alert, in no apparent distress, other (This is a well- developed, well-nourished elderly male patient in no acute distress. Vital signs upon presentation are temperature 97.9F, pulse 84, respirations 20, blood pressure 130/80, pulse ox 99% on room air.) Head exam: Present: other (Patient has abrasion noted to the right occipital scalp, there is soft tissue swelling. There is no bony deformity or step-off noted to palpation around the site.) Eye exam: Present: normal appearance, PERRL, EOMI. Absent: scleral icterus, conjunctival injection, nystagmus, periorbital swelling ENT exam: Present: normal exam, normal oropharynx, mucous membranes moist Neck exam: Present: normal inspection, full ROM, other (Nontender, no step-off, no deformity to firm midline palpation of the posterior cervical spine. Full range of motion without pain or limitation.). Absent: tenderness, meningismus, lymphadenopathy Respiratory exam: Present: normal lung sounds bilaterally. Absent: respiratory distress, wheezes, rales, rhonchi, stridor Cardiovascular Exam: Present: regular rate GI/Abdominal exam: Present: soft, normal bowel sounds. Absent: distended, tenderness, guarding, rebound, rigid Back exam: Present: normal inspection, other (Nontender, no step-off, no deformity to firm midline palpation of the thoracic and lumbar vertebrae. Full range of motion without pain or limitation.). Absent: vertebral tenderness Neurological exam: Present: alert, oriented X3, CN II-XII intact, other ( Strength in all 4 extremities is 5/5.) Psychiatric exam: Present: normal affect, normal mood Skin exam: Present: warm, dry, intact, normal color. Absent: rash <Annie Menjivar - Last Filed: 11/26/17 04:22> Vital Signs 11/25/17 11/25/17 22:40 23:58 Temperature 97.9 F Pulse Rate 84 79 Respiratory 20 18 Rate Blood Pressure 130/80 124/76 O2 Sat by Pulse 99 98 Oximetry Medical Decision Making - Radiology Data Radiology results: report reviewed, image reviewed <Annie Menjivar M - Last Filed: 11/26/17 04:22> <Sadia Grove - Last Filed: 11/26/17 04:41> - Medical Decision Making 76-year-old male patient presents to the emergency department today for evaluation after expressing a fall at home. Physical examination did reveal abrasion and soft tissue swelling to the right occipital scalp. Patient is neurologically intact. Denies any injuries. CT brain and C-spine were performed as patient does take Plavix, there is no intracranial abnormalities acute osseous abdomen ALLERGIES to the cervical spine. Did discuss findings and results with the patient. He is instructed to keep wounds clean and dry. Instructed to monitor for signs or symptoms of worsening head injury. Is instructed to follow-up with his primary care physician for recheck in 1-2 days. Return parameters were discussed in detail. Both patient and stepdaughter verbalizes understanding and agree with this plan. (Annie Menjivar) I was available for consultation in the emergency department. The history and physical exam were done by the midlevel provider. I was consulted for this patient's care. I reviewed the case with the midlevel provider and based on their presentation of the patient, I agree with the assessment, medical decision making and plan of care as documented. (Sadia Grove) - Radiology Data Computed tomography scan of the head and cervical spine are performed without contrast. Report was reviewed in its entirety. Impression by Dr. Fleming shows spondylotic changes in the cervical spine. No fracture. She verbalizes her feet. No acute intracranial abnormality. (Annie Mejnivar) Disposition Is patient prescribed a controlled substance at d/c from ED?: No Time of Disposition: 23:47 <Annie Menjivar - Last Filed: 11/26/17 04:22> <Sadia Grove - Last Filed: 11/26/17 04:41> Clinical Impression: Head injury Disposition: HOME SELF-CARE Condition: Good Instructions: Fall Prevention for Older Adults (ED), Head Injury (ED) Additional Instructions: Apply ice to the painful areas. Follow-up with your primary care physician for recheck in 1-2 days. Return here immediately for any signs or symptoms of worsening head injury including increased confusion, headache, vomiting, dizziness, weakness. Return here immediate for any other new, worsening, or concerning symptoms. Referrals: Ramya James DO [Primary Care Provider] - 1-2 days
[2017-11-25 23:59] VITALS: BP 124/76; PULSE 79; RESP 18
== END 2017-11-25 23:59 | disposition home or self-care (01) ==
LOC: EC 22:10
DX: S00.01XA Abrasion of scalp, initial encounter (principal); E78.5 Hyperlipidemia, unspecified; I10 Essential (primary) hypertension; I25.2 Old myocardial infarction; Z95.5 Presence of coronary angioplasty implant and graft; Z95.818 Presence of other cardiac implants and grafts; Z87.891 Personal history of nicotine dependence; Z79.02 Long term (current) use of antithrombotics/antiplatelets; Z79.899 Other long term (current) drug therapy; Z88.8 Allergy status to other drugs, medicaments and biological substances; W01.10XA Fall on same level from slipping, tripping and stumbling with subsequent striking against unspecified object, initial encounter; Y93.89 Activity, other specified; Y92.89 Other specified places as the place of occurrence of the external cause
CPT/HCPCS: 70450; 72125; 99283

== ENCOUNTER → 2017-12-18 | Outpatient (CLI) | payer MEDICARE, OTHER ==
--- NOTE | 2017-12-21 22:14 | ENG ---
ELECTRONYSTAGMOGRAM REPORT VIDEO ELECTRONYSTAGMOGRAPHIC REPORT: AGE: 77 VNG INDICATIONS: 77 -year-old male with vertigo and blacking out which began in July 2017, gradual onset, staying the same, and comes in spells or attacks typically when walking. Difficulty with hearing, both ears. No tinnitus or other ear symptoms such as fullness, pressure, or pain. VNG FINDINGS: SPONTANEOUS NYSTAGMUS: SACCADES: Saccades shows intact peak velocities and mixed accuracies and latencies, which are not consistent. GAZE TEST: Gaze with fixation shows no nystagmus in any of the directions of gaze including centrally with vision denied. SINUSOIDAL TRACKING: Tracking shows no significant break-ups at faster or slower speeds. OKN TEST: Optokinetic nystagmus shows no significant asymmetry. TAMRA-HALLPIKE TEST: POSITION TEST: Static position testing done in 4 different positions with eyes open and then with vision denied shows no significant nystagmus. CALORIC TEST: Caloric testing shows a 13% unilateral right caloric weakness which is within normal limits. CONCLUSIONS: VNG shows some abnormalities in saccades, which may favor central nervous system dysfunction. Other features of this VNG are unremarkable. No evidence for vestibulopathy. MMODL / IJN: [id number] /
== END | disposition home or self-care (01) ==
LOC: NEUROMAIN 06:42
PROVIDERS: ATTEND Otolaryngology
DX: R94.118 Abnormal results of other function studies of eye (principal); R42 Dizziness and giddiness
CPT/HCPCS: 92537; 92540

== ENCOUNTER → 2018-01-10 | Outpatient (CLI) | payer MEDICARE, OTHER | END | disposition home or self-care (01) | LOC: LABWHC1 08:34 | PROVIDERS: ATTEND Otolaryngology | DX: R42 Dizziness and giddiness (principal) | CPT/HCPCS: 36415; 82565 ==

== ENCOUNTER → 2018-01-21 | Outpatient (CLI) | payer MEDICARE, OTHER ==
--- NOTE | 2018-01-21 22:26 | MR ---
EXAMINATION TYPE: MR iac wo/w con DATE OF EXAM: 01/21/2018 COMPARISON: CT brain November 25, 2017 HISTORY: Ataxia, vertigo TECHNIQUE: Multiplanar, multisequence images of the brain and brainstem is performed without and with IV contras t, utilizing 7.5 mL intravenous Gadavist . Internal acoustic nerve disorder protocol. FINDINGS: Diffusion weighted images demonstrate no evidence of a recent infarct or other diffusion ab normality. There is no worrisome extra-axial fluid collection. There is diffuse ventricular and sulc al prominence consistent with diffuse cerebral atrophy there are focal and confluent areas of T2 hype rintensity in the deep and periventricular white matter. Lesions are most likely on basis of product of chronic small vessel ischemic change in patient of this age. Midline structures demonstrate normal morphology. The craniocervical junction appears within normal limits. Normal vascular flow voids are present. There is mild mucosal thickening inferiorly in left m axillary sinus with small mucous retention cyst or polyp in posterior inferior right maxillary sinus. The globes are intact bilaterally. No suspicious opacification of mastoid air cells is present bilaterally. The vestibulocochlear comple xes are symmetric and felt within normal limits. No suspicious enhancing cerebellopontine angle mass is identified bilaterally. IMPRESSION: 1. No evidence of a recent infarct. 2. Background fairly moderate diffuse cerebral atrophy and mild to moderate chronic small vessel isch emic change. 3. No suspicious enhancing cerebellopontine angle mass present bilaterally.
== END | disposition home or self-care (01) ==
LOC: RADMRIMAIN 14:22
PROVIDERS: ATTEND Otolaryngology
DX: I67.82 Cerebral ischemia (principal); G31.9 Degenerative disease of nervous system, unspecified
CPT/HCPCS: 70553; A9585

== ENCOUNTER → 2018-03-14 | Outpatient (CLI) | payer MEDICARE, OTHER ==
[2018-03-14 17:00] LABS: Protein, Total 6.1 g/dL (6.2-8.2)
[2018-03-14 18:30] LABS: C Reactive Protein <0.4 mg/dL (0.0-0.8); Creatine Kinase 82 U/L (35-257)
[2018-03-17 12:12] LABS: Albumin 4.03 g/dL (3.80-4.90); Gamma Globulin 0.57 g/dL (0.70-1.50)
== END | disposition home or self-care (01) ==
LOC: LABWHC1 08:08
PROVIDERS: ATTEND Psychiatry & Neurology Neurology
DX: G62.9 Polyneuropathy, unspecified (principal)
CPT/HCPCS: 36415; 82175; 82550; 82570; 82607; 82747; 83655; 83825; 84165; 84439; 84443; 85652; 86038; 86140; 86618

== ENCOUNTER → 2018-03-25 | Outpatient (CLI) | payer MEDICARE, OTHER ==
--- NOTE | 2018-03-25 14:35 | MR ---
EXAMINATION TYPE: MR lumbar spine wo con DATE OF EXAM: 03/25/2018 COMPARISON: NONE HISTORY: Spinal stenosis / Increased low back pain both per order. Back pain for 4 years per patient. TECHNIQUE: Multiplanar, multisequence imaging of the lumbar spine is performed without IV contrast. FINDINGS: Sagittal images of the lumbar spine show vertebral body heights and alignment to appear sat isfactory. Multilevel disc desiccation with multilevel disc space narrowing is present. There is fair ly moderate multilevel disc space narrowing in the mid to lower lumbar spine with advanced disc space narrowing L5-S1 level . Multiple posterior disc herniations are seen effacing anterior thecal sac in the mid to lower lumbar spine. The conus medullaris is normal in position and signal ending mid L1 l evel. Mild to moderate multilevel anterior spurring is present. Heterogeneous bone marrow signal inte nsity is noted. Axial images show the T12-L1 and L1-L2 levels to appear within normal limits. Axial images at the L2-L3 level show mild facet degenerative changes bilaterally. There is mild to mo derate broad disc bulge with left lateral disc protrusion component. There is effacement of the anter ior thecal sac. There is mild left-sided anterior inferior neural foraminal narrowing. Right-sided ne ural foramen is patent. Axial images at the L3-L4 level show moderate broad based posterior disc protrusion effacing anterior thecal sac. There is mild facet degenerative changes bilaterally. Bilateral neural foramina are dalal nt. Axial images at the L4-L5 level show moderate broad disc bulge with central disc protrusion component effacing anterior thecal sac. There is mild facet degenerative changes bilaterally. There is mild bi lateral anterior inferior neural foraminal narrowing. Axial images at the L5-S1 level show mild to moderate facet degenerative changes bilaterally. There i s moderate to advanced broad disc bulge seen. Spinal canal is minimally effaced. There is mild to mod erate bilateral neural foraminal narrowing. Cortical thinning is present bilaterally in both kidneys. There is T2 hyperintense 6 mm lesion cardiothoracic surgeon iorly right kidney axial image 25 favoring simple small cyst. Slightly more prominent focal cortex an teriorly right kidney axial image 23 is identified which correlates with CT from 2016. IMPRESSION: Multilevel degenerative changes most prominent in the mid to lower lumbar spine as detail ed above.
== END | disposition home or self-care (01) ==
LOC: RADMRIMAIN 12:38
PROVIDERS: ATTEND Psychiatry & Neurology Neurology
DX: M47.817 Spondylosis without myelopathy or radiculopathy, lumbosacral region (principal)
CPT/HCPCS: 72148

== ENCOUNTER → 2019-05-12 | Outpatient (CLI) | payer MEDICARE, OTHER | END | disposition home or self-care (01) | LOC: LABWHC1 08:15 | PROVIDERS: ATTEND Radiology Radiation Oncology | DX: C61 Malignant neoplasm of prostate (principal); Z87.891 Personal history of nicotine dependence | CPT/HCPCS: 36415; 84153 ==

== ENCOUNTER → 2019-09-10 | Outpatient (CLI) | payer MEDICARE, OTHER | END | disposition home or self-care (01) | LOC: LABWHC1 09:41 | PROVIDERS: ATTEND Radiology Radiation Oncology | DX: C61 Malignant neoplasm of prostate (principal); Z87.891 Personal history of nicotine dependence | CPT/HCPCS: 36415; 84153 ==

== ENCOUNTER 2019-09-12 21:37 | Observation (INO) | payer MEDICARE, OTHER ==
[2019-09-12] MEDS ORDERED: SODIUM CHLORIDE 0.9% 1,000 ML IV STA (21:48)
--- NOTE | 2019-09-12 21:50 | ED ---
Fall HPI <Danielito Gonzalez - Last Filed: 09/13/19 03:30> - General Source: patient, EMS Mode of arrival: EMS - History of Present Illness MD Complaint: fall -: hour(s) Fall From: standing When Fall Occurred: 1 hour [place] [facility], 4-6 hours [place] [facility] Fall Witnessed: no Place Fall Occurred: home Loss of Consciousness: none Prolonged Down Time?: no Symptoms Prior to Fall: none Severity: moderate Context: tripped/slipped Associated Symptoms: denies <Frank Gonzalez - Last Filed: 09/13/19 15:36> - General Chief Complaint: Fall Stated Complaint: Fall Time Seen by Provider: 09/12/19 21:40 - History of Present Illness Initial Comments: This is a 78-year-old male with no significant known medical history of changes. Patient does have history of smart disease coming with some episodic weakness today with 2 falls. 2 falls that he was unable to get up with first well he did require help was able to stand up and able to amply again went back to his house and has second episode. Patient's episodes came after standing onto the ground. Denying any pains or trauma from most falls no headache chest pain shortness breath or abdominal pain no back pain and patient is able to move oxygen result difficulty (Frank Gonzalez) - Related Data Home Medications Medication Instructions Recorded Confirmed Atorvastatin [Lipitor] 20 mg PO MOFR@2100 11/16/15 09/13/19 Cetirizine HCl 10 mg PO DAILY 11/16/15 09/13/19 Cholecalciferol [Vitamin D3 (25 2,000 unit PO DAILY 11/16/15 09/13/19 Mcg = 1000 Iu)] Finasteride [Proscar] 5 mg PO DAILY 11/16/15 09/13/19 Losartan Potassium 100 mg PO HS 11/16/15 09/13/19 Metoprolol Tartrate [Lopressor] 50 mg PO BID 11/16/15 09/13/19 Multivitamins, Thera [Multivitamin 1 tab PO DAILY 11/16/15 09/13/19 (formulary)] [place]-3 Fatty Acids/Fish Oil [Fish 1 cap PO DAILY 11/16/15 09/13/19 Oil 1,000 mg Softgel] Vitamin E 1,000 unit PO DAILY 11/16/15 09/13/19 Clopidogrel [Plavix] 75 mg PO DAILY 04/15/17 09/13/19 Hylands Leg Cramps Otc 1 tab PO DAILY PRN 04/15/17 09/13/19 Allergies Allergy/AdvReac Type Severity Reaction Status Date / Time Vjalsrr-Hul-Fqi Reductase AdvReac LEG CRAMPS Verified 09/13/19 08:50 Inhibitor Review of Systems ROS Other: All systems not noted in ROS Statement are negative. <Danielito Gonzalez - Last Filed: 09/13/19 03:30> ROS Other: All systems not noted in ROS Statement are negative. <Frank Gonzalez - Last Filed: 09/13/19 15:36> ROS Statement: Those systems with pertinent positive or pertinent negative responses have been documented in the HPI. Past Medical History Past Medical History: Hyperlipidemia, Hypertension, Myocardial Infarction (NM) Additional Past Medical History / Comment(s): UNKNOWN DATE OF NM, ENVIRONMENTAL ALLERGIES, BACK PAIN. , LEFT INGUINAL HERNIA. 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 Last Myocardial Infarction Date:: UNKNOWN History of Any Multi-Drug Resistant Organisms: None Reported Past Surgical History: Heart Catheterization, Heart Catheterization With Stent, Orthopedic Surgery, Tonsillectomy Additional Past Surgical History / Comment(s): JONY SHOULDER SURGERIES, VASECTOMY, . HEART CATH WITH STENT FEB 2001, HEART CATH 2001, 2002 & 2008. Past Anesthesia/Blood Transfusion Reactions: No Reported Reaction Date of Last Stent Placement:: FEBRUARY 2001 Past Psychological History: No Psychological Hx Reported Smoking Status: Former smoker Past Alcohol Use History: Daily Past Drug Use History: None Reported - Past Family History Mother Family Medical History: No Reported History <Frank Gonzalez - Last Filed: 09/13/19 15:36> General Exam Limitations: physical limitation General appearance: alert, in no apparent distress Head exam: Present: atraumatic, normocephalic, normal inspection Eye exam: Present: normal appearance, PERRL, EOMI. Absent: scleral icterus, conjunctival injection, periorbital swelling ENT exam: Present: normal exam, mucous membranes moist Neck exam: Present: normal inspection. Absent: tenderness, meningismus, lymphadenopathy Respiratory exam: Present: normal lung sounds bilaterally. Absent: respiratory distress, wheezes, rales, rhonchi, stridor Cardiovascular Exam: Present: normal rhythm, tachycardia, normal heart sounds. Absent: systolic murmur, diastolic murmur, rubs, gallop, clicks GI/Abdominal exam: Present: soft, normal bowel sounds. Absent: distended, tenderness, guarding, rebound, rigid Extremities exam: Present: normal inspection, full ROM, normal capillary refill. Absent: tenderness, pedal edema, joint swelling, calf tenderness Back exam: Present: normal inspection Neurological exam: Present: alert, oriented X3, CN II-XII intact Psychiatric exam: Present: normal affect, normal mood Skin exam: Present: warm, dry, intact, normal color. Absent: rash <Frank Gonzalez - Last Filed: 09/13/19 15:36> - General Exam Comments Initial Comments: Patient has good strength in all 4 extremities (Frank Gonzalez) Course <Frank Gonzalez - Last Filed: 09/13/19 15:36> Vital Signs 09/12/19 09/13/19 09/13/19 21:38 00:00 01:00 Temperature 98.2 F Pulse Rate 101 H 82 80 Respiratory 18 18 18 Rate Blood Pressure 134/84 135/82 O2 Sat by Pulse 95 Oximetry 09/13/19 03:53 Temperature 97.7 F Pulse Rate 82 Respiratory 16 Rate Blood Pressure 138/97 O2 Sat by Pulse 98 Oximetry - Reevaluation(s) Reevaluation #1: 09/12/19 21:50 Medical records reviewed Patient does show signs of intoxication no acute abnormalities No new neurological findings (Frank Gonzalez) Medical Decision Making - Lab Data Result diagrams: 09/12/19 22:00 09/12/19 22:00 <Danielito Gonzalez - Last Filed: 09/13/19 03:30> - Lab Data Result diagrams: 09/12/19 22:00 09/12/19 22:00 - EKG Data -: EKG Interpreted by Me (EKG shows sinus 93 MD 146 QRS 90 QTC 440) - Radiology Data Radiology results: report reviewed (X-ray pelvis chest negative for acute disease light x-rays negative for acute disease), image reviewed <Frank Gonzalez - Last Filed: 09/13/19 15:36> - Medical Decision Making 78 male DF for evaluation patient presents today for evaluation of weakness and lower extremities and falls. Patient be admitted for alcohol ketoacidosis dehydration and altered abnormalities (Frank Gonzalez) - Lab Data Lab Results 09/12/19 09/12/19 09/12/19 Range/Units 22:00 22:00 22:00 WBC 4.8 (3.8-10.6) k/uL RBC 4.56 (4.30-5.90) m/uL Hgb 15.2 (13.0-17.5) gm/dL Hct 45.3 (39.0-53.0) % MCV 99.3 (80.0-100.0) fL MCH 33.3 (25.0-35.0) pg MCHC 33.6 (31.0-37.0) g/dL RDW 12.6 (11.5-15.5) % Plt Count 139 L (150-450) k/uL Neutrophils % 78 % Lymphocytes % 8 % Monocytes % 8 % Eosinophils % 2 % Basophils % 1 % Neutrophils # 3.8 (1.3-7.7) k/uL Lymphocytes # 0.4 L (1.0-4.8) k/uL Monocytes # 0.4 (0-1.0) k/uL Eosinophils # 0.1 (0-0.7) k/uL Basophils # 0.0 (0-0.2) k/uL PT 9.4 (9.0-12.0) sec INR 0.9 (<1.2) APTT 21.5 L (22.0-30.0) sec Sodium 138 (137-145) mmol/L Potassium 4.8 (3.5-5.1) mmol/L Chloride 105 (98-107) mmol/L Carbon Dioxide 17 L (22-30) mmol/L Anion Gap 16 mmol/L BUN 27 H (9-20) mg/dL Creatinine 1.15 (0.66-1.25) mg/dL Est GFR (CKD-EPI)AfAm 71 (>60 ml/min/1.73 sqM) Est GFR (CKD-EPI)NonAf 61 (>60 ml/min/1.73 sqM) Glucose 115 H (74-99) mg/dL Lactic Ac Sepsis Rflx Plasma Lactic Acid John (0.7-2.0) mmol/L Calcium 9.6 (8.4-10.2) mg/dL Phosphorus 2.7 (2.5-4.5) mg/dL Magnesium 2.1 (1.6-2.3) mg/dL Total Bilirubin 0.4 (0.2-1.3) mg/dL AST 50 (17-59) U/L ALT 40 (4-49) U/L Alkaline Phosphatase 67 (38-126) U/L Creatine Kinase 105 (55-170) U/L Troponin I (0.000-0.034) ng/mL NT-Pro-B Natriuret Pep pg/mL Total Protein 6.1 L (6.3-8.2) g/dL Albumin 4.0 (3.5-5.0) g/dL TSH 2.960 (0.465-4.680) mIU/L Urine Color Urine Appearance (Clear) Urine pH (5.0-8.0) Ur Specific [place] (1.001-1.035) Urine Protein (Negative) Urine Glucose (UA) (Negative) Urine Ketones (Negative) Urine Blood (Negative) Urine Nitrite (Negative) Urine Bilirubin (Negative) Urine Urobilinogen (<2.0) mg/dL Ur Leukocyte Esterase (Negative) Serum Alcohol 146 mg/dL 09/12/19 09/12/19 09/12/19 Range/Units 22:00 22:00 22:00 WBC (3.8-10.6) k/uL RBC (4.30-5.90) m/uL Hgb (13.0-17.5) gm/dL Hct (39.0-53.0) % MCV (80.0-100.0) fL MCH (25.0-35.0) pg MCHC (31.0-37.0) g/dL RDW (11.5-15.5) % Plt Count (150-450) k/uL Neutrophils % % Lymphocytes % % Monocytes % % Eosinophils % % Basophils % % Neutrophils # (1.3-7.7) k/uL Lymphocytes # (1.0-4.8) k/uL Monocytes # (0-1.0) k/uL Eosinophils # (0-0.7) k/uL Basophils # (0-0.2) k/uL PT (9.0-12.0) sec INR (<1.2) APTT (22.0-30.0) sec Sodium (137-145) mmol/L Potassium (3.5-5.1) mmol/L Chloride (98-107) mmol/L Carbon Dioxide (22-30) mmol/L Anion Gap mmol/L BUN (9-20) mg/dL Creatinine (0.66-1.25) mg/dL Est GFR (CKD-EPI)AfAm (>60 ml/min/1.73 sqM) Est GFR (CKD-EPI)NonAf (>60 ml/min/1.73 sqM) Glucose (74-99) mg/dL Lactic Ac Sepsis Rflx Plasma Lactic Acid John 4.9 H* (0.7-2.0) mmol/L Calcium (8.4-10.2) mg/dL Phosphorus (2.5-4.5) mg/dL Magnesium (1.6-2.3) mg/dL Total Bilirubin (0.2-1.3) mg/dL AST (17-59) U/L ALT (4-49) U/L Alkaline Phosphatase (38-126) U/L Creatine Kinase (55-170) U/L Troponin I <0.012 (0.000-0.034) ng/mL NT-Pro-B Natriuret Pep 148 pg/mL Total Protein (6.3-8.2) g/dL Albumin (3.5-5.0) g/dL TSH (0.465-4.680) mIU/L Urine Color Urine Appearance (Clear) Urine pH (5.0-8.0) Ur Specific [place] (1.001-1.035) Urine Protein (Negative) Urine Glucose (UA) (Negative) Urine Ketones (Negative) Urine Blood (Negative) Urine Nitrite (Negative) Urine Bilirubin (Negative) Urine Urobilinogen (<2.0) mg/dL Ur Leukocyte Esterase (Negative) Serum Alcohol mg/dL 09/12/19 09/12/19 09/13/19 Range/Units 23:01 23:39 01:25 WBC (3.8-10.6) k/uL RBC (4.30-5.90) m/uL Hgb (13.0-17.5) gm/dL Hct (39.0-53.0) % MCV (80.0-100.0) fL MCH (25.0-35.0) pg MCHC (31.0-37.0) g/dL RDW (11.5-15.5) % Plt Count (150-450) k/uL Neutrophils % % Lymphocytes % % Monocytes % % Eosinophils % % Basophils % % Neutrophils # (1.3-7.7) k/uL Lymphocytes # (1.0-4.8) k/uL Monocytes # (0-1.0) k/uL Eosinophils # (0-0.7) k/uL Basophils # (0-0.2) k/uL PT (9.0-12.0) sec INR (<1.2) APTT (22.0-30.0) sec Sodium (137-145) mmol/L Potassium (3.5-5.1) mmol/L Chloride (98-107) mmol/L Carbon Dioxide (22-30) mmol/L Anion Gap mmol/L BUN (9-20) mg/dL Creatinine (0.66-1.25) mg/dL Est GFR (CKD-EPI)AfAm (>60 ml/min/1.73 sqM) Est GFR (CKD-EPI)NonAf (>60 ml/min/1.73 sqM) Glucose (74-99) mg/dL Lactic Ac Sepsis Rflx Y Plasma Lactic Acid John 2.8 H* (0.7-2.0) mmol/L Calcium (8.4-10.2) mg/dL Phosphorus (2.5-4.5) mg/dL Magnesium (1.6-2.3) mg/dL Total Bilirubin (0.2-1.3) mg/dL AST (17-59) U/L ALT (4-49) U/L Alkaline Phosphatase (38-126) U/L Creatine Kinase (55-170) U/L Troponin I (0.000-0.034) ng/mL NT-Pro-B Natriuret Pep pg/mL Total Protein (6.3-8.2) g/dL Albumin (3.5-5.0) g/dL TSH (0.465-4.680) mIU/L Urine Color Yellow Urine Appearance Clear (Clear) Urine pH 5.5 (5.0-8.0) Ur Specific [place] 1.016 (1.001-1.035) Urine Protein Negative (Negative) Urine Glucose (UA) Negative (Negative) Urine Ketones 1+ H (Negative) Urine Blood Negative (Negative) Urine Nitrite Negative (Negative) Urine Bilirubin Negative (Negative) Urine Urobilinogen <2.0 (<2.0) mg/dL Ur Leukocyte Esterase Negative (Negative) Serum Alcohol mg/dL 09/13/19 Range/Units 02:16 WBC (3.8-10.6) k/uL RBC (4.30-5.90) m/uL Hgb (13.0-17.5) gm/dL Hct (39.0-53.0) % MCV (80.0-100.0) fL MCH (25.0-35.0) pg MCHC (31.0-37.0) g/dL RDW (11.5-15.5) % Plt Count (150-450) k/uL Neutrophils % % Lymphocytes % % Monocytes % % Eosinophils % % Basophils % % Neutrophils # (1.3-7.7) k/uL Lymphocytes # (1.0-4.8) k/uL Monocytes # (0-1.0) k/uL Eosinophils # (0-0.7) k/uL Basophils # (0-0.2) k/uL PT (9.0-12.0) sec INR (<1.2) APTT (22.0-30.0) sec Sodium (137-145) mmol/L Potassium (3.5-5.1) mmol/L Chloride (98-107) mmol/L Carbon Dioxide (22-30) mmol/L Anion Gap mmol/L BUN (9-20) mg/dL Creatinine (0.66-1.25) mg/dL Est GFR (CKD-EPI)AfAm (>60 ml/min/1.73 sqM) Est GFR (CKD-EPI)NonAf (>60 ml/min/1.73 sqM) Glucose (74-99) mg/dL Lactic Ac Sepsis Rflx Y Plasma Lactic Acid John (0.7-2.0) mmol/L Calcium (8.4-10.2) mg/dL Phosphorus (2.5-4.5) mg/dL Magnesium (1.6-2.3) mg/dL Total Bilirubin (0.2-1.3) mg/dL AST (17-59) U/L ALT (4-49) U/L Alkaline Phosphatase (38-126) U/L Creatine Kinase (55-170) U/L Troponin I (0.000-0.034) ng/mL NT-Pro-B Natriuret Pep pg/mL Total Protein (6.3-8.2) g/dL Albumin (3.5-5.0) g/dL TSH (0.465-4.680) mIU/L Urine Color Urine Appearance (Clear) Urine pH (5.0-8.0) Ur Specific [place] (1.001-1.035) Urine Protein (Negative) Urine Glucose (UA) (Negative) Urine Ketones (Negative) Urine Blood (Negative) Urine Nitrite (Negative) Urine Bilirubin (Negative) Urine Urobilinogen (<2.0) mg/dL Ur Leukocyte Esterase (Negative) Serum Alcohol mg/dL Disposition <Danielito Gonzalez - Last Filed: 09/13/19 03:30> <Frank Gonzlaez - Last Filed: 09/13/19 15:36> Clinical Impression: Fall, Alcoholic ketoacidosis, Alcohol intoxication Disposition: ADMITTED IP TO THIS HOSP Condition: Fair
[2019-09-12 22:37] LABS: Basophils % (A) 1 %; Eosinophils # (A) 0.1 k/uL (0-0.7); Eosinophils % (A) 2 %; HCT 45.3 % (39.0-53.0); HGB 15.2 gm/dL (13.0-17.5); Lymphocytes # (A) 0.4 k/uL (1.0-4.8); Lymphocytes % (A) 8 %; MCH 33.3 pg (25.0-35.0); MCHC 33.6 g/dL (31.0-37.0); MCV 99.3 fL (80.0-100.0); Mean Platelet Volume 8.2; Monocytes # (A) 0.4 k/uL (0-1.0); Monocytes % (A) 8 %; Neutrophils # (A) 3.8 k/uL (1.3-7.7); Neutrophils % (A) 78 %; Platelet Count 139 k/uL (150-450); RBC 4.56 m/uL (4.30-5.90); RDW 12.6 % (11.5-15.5); WBC 4.8 k/uL (3.8-10.6)
[2019-09-12 22:51] LABS: Calcium 9.6 mg/dL (8.4-10.2); Magnesium 2.1 mg/dL (1.6-2.3); Phosphorus 2.7 mg/dL (2.5-4.5); Potassium 4.8 mmol/L (3.5-5.1); Total Bilirubin 0.4 mg/dL (0.2-1.3); Total Protein 6.1 g/dL (6.3-8.2)
[2019-09-12 22:55] LABS: INR 0.9 (<1.2); Prothrombin Time 9.4 sec (9.0-12.0)
--- NOTE | 2019-09-12 23:05 | XR ---
EXAMINATION TYPE: XR lumbar spine 2 or 3V DATE OF EXAM: 09/12/2019 COMPARISON: NONE HISTORY: Pain TECHNIQUE: 3 views FINDINGS: The vertebra have normal alignment. Posterior elements are intact. There is spurring of the endplates. There is mild lumbar disc space narrowing. Abdominal aorta is atheromatous. Sacroiliac yulia ints appear intact. IMPRESSION: Multilevel spondylotic changes. No fracture seen.
--- NOTE | 2019-09-12 23:09 | XR ---
EXAMINATION TYPE: XR pelvis AP view DATE OF EXAM: 09/12/2019 COMPARISON: NONE HISTORY: Pain TECHNIQUE: Nevaeh view FINDINGS: Pelvic ring is intact. Proximal femurs are intact. Sacroiliac joints appear normal. IMPRESSION: Negative pelvis x-ray exam.
[2019-09-12 23:16] LABS: Partial Thromboplastin Time 21.5 sec (22.0-30.0)
--- NOTE | 2019-09-12 23:16 | XR ---
EXAMINATION TYPE: XR chest 1V DATE OF EXAM: 09/12/2019 COMPARISON: 04/15/2017 HISTORY: Difficulty breathing TECHNIQUE: 2 views FINDINGS: Heart is normal. Lungs are clear of infiltrate. Thoracic aorta is atheromatous. There is no pleural effusion. There are no hilar masses. There is bilateral shoulder surgery. IMPRESSION: No active cardiopulmonary disease. No change.
--- NOTE | 2019-09-12 23:17 | XR ---
EXAMINATION TYPE: XR knee complete bilateral DATE OF EXAM: 09/12/2019 COMPARISON: NONE HISTORY: Pain TECHNIQUE: 6 views FINDINGS: There is no evidence of fracture nor dislocation. Knee joint spaces are fairly normal. Ther e is no sign of joint effusion. IMPRESSION: Negative bilateral knee exam.
[2019-09-12 23:57] LABS: Appearance,Urine Clear (Clear); Bilirubin,Urine Negative (Negative); Blood,Urine Negative (Negative); Color,Urine Yellow; Glucose,Urine (UA) Negative (Negative); Ketones,Urine 1+ (Negative); Leukocyte Esterase,Urine Negative (Negative); Nitrite,Urine Negative (Negative); PH, Urine 5.5 (5.0-8.0); Protein,Urine Negative (Negative); Specific Gravity,Urine 1.016 (1.001-1.035); Urobilinogen,Urine <2.0 mg/dL (<2.0)
[2019-09-13] MEDS ORDERED: NALOXONE 0.4 MG/ML 1 ML VIAL IV PRN (03:26)
[2019-09-13] MEDS: SODIUM CHLORIDE 0.9% 1,000 ML IV SCH ×2 (04:34→17:13)
[2019-09-13] MEDS: CLOPIDOGREL 75 MG TAB PO SCH (07:28)
[2019-09-13] MEDS: MULTIVITAMINS, THERA 1 EACH TAB PO SCH (07:28)
[2019-09-13] MEDS: FINASTERIDE 5 MG TAB PO SCH (07:28)
[2019-09-13] MEDS: METOPROLOL TARTRATE 50 MG TAB PO SCH ×2 (07:28→20:43)
[2019-09-13] MEDS: CHOLECALCIFEROL 1,000 UNIT TAB PO SCH (07:28)
[2019-09-13] MEDS: FAMOTIDINE 20 MG TAB PO SCH ×2 (07:28→20:42)
[2019-09-13] MEDS ORDERED: LORazepam 2 MG/ML INJ IV PRN ×3 (11:32)
[2019-09-13] MEDS: LOSARTAN 50 MG TAB PO SCH (20:43)
--- NOTE | 2019-09-13 22:29 | P.HPIM ---
History of Present Illness H&P Date: 09/13/19 Chief Complaint: Falls Patient is a 78-year-old male with a known history of hypertension, hyperlipidemia, history of coronary artery disease status post stent placement, previous history of smoking and daily alcohol use came to ER with complaints of falls x2 episodes. Patient states that he was at his neighbor's home initially where he fell on the floor and denied any head injury. Patient fell to the right side. Patient came back home and had another fall and unable to get up from the floor. Denied any complaints of chest pain or shortness of breath. No headache or dizziness or lightheadedness. No nausea vomiting abdominal pain or diarrhea. No dysuria or hematuria. No complaints of cough or sputum production. Denied any recent illnesses. Patient was alcohol intoxicated on admission with alcohol level 146 otherwise patient has been drinking every day one half bottles of wine daily. Laboratory data showed WBC 4.8, hemoglobin 15.2, platelets 139, sodium 138, potassium 4.8, bicarbonate 17, BUN 27 creatinine 1.15 Lactic acid level 4.9 Troponin x1- proBNP 148 and TSH level is 2.96 X-ray of the lumbar spine showed multilevel spondylitic changes. No fracture is seen. X-ray of the pelvis negative pelvic exam Chest x-ray showed no acute cardiopulmonary disease Knee x-ray showed negative bilateral knee exam EKG showed normal sinus rhythm. Review of Systems Constitutional: Patient denies any fever or chills . falls and generalized weakness . no weight loss. Abdomen: Patient denied nausea vomiting and diarrhea and abdominal pain. Cardiovascular: Patient denies any chest pain or short of breath no palpitations. Respiratory: patient denied any cough is from production. No shortness of breath Neurologic: Patient denied any numbness or tingling headache. Musculoskeletal: Patient denies any complaints of joint swelling or deformity. Skin: Negative Psychiatric: Negative Endocrine: No heat or cold intolerance. No recent weight gain. Genitourinary: No dysuria or hematuria. All other 14 point ROS negative except the above Past Medical History Past Medical History: Hyperlipidemia, Hypertension, Myocardial Infarction (PA) Additional Past Medical History / Comment(s): UNKNOWN DATE OF PA, ENVIRONMENTAL ALLERGIES, BACK PAIN. , LEFT INGUINAL HERNIA. 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 Last Myocardial Infarction Date:: UNKNOWN History of Any Multi-Drug Resistant Organisms: None Reported Past Surgical History: Heart Catheterization, Heart Catheterization With Stent, Orthopedic Surgery, Tonsillectomy Additional Past Surgical History / Comment(s): JONY SHOULDER SURGERIES, VASECT DULCE, . HEART CATH WITH STENT FEB 2001, HEART CATH 2001, 2002 & 2008. Past Anesthesia/Blood Transfusion Reactions: No Reported Reaction Date of Last Stent Placement:: FEBRUARY 2001 Past Psychological History: No Psychological Hx Reported Smoking Status: Former smoker Past Alcohol Use History: Daily Additional Past Alcohol Use History / Comment(s): SMOKED 23 YEARS, QUIT MAY 06, 1982. SMOKED 2 1/2 PPD. DRINKS 2-3 GLASSES OF WINE DAILY. Past Drug Use History: None Reported - Past Family History Mother Family Medical History: No Reported History Medications and Allergies Home Medications Medication Instructions Recorded Confirmed Type Atorvastatin [Lipitor] 20 mg PO MOFR@2100 11/16/15 09/13/19 History Cetirizine HCl 10 mg PO DAILY 11/16/15 09/13/19 History Cholecalciferol [Vitamin D3 (25 2,000 unit PO DAILY 11/16/15 09/13/19 History Mcg = 1000 Iu)] Finasteride [Proscar] 5 mg PO DAILY 11/16/15 09/13/19 History Losartan Potassium 100 mg PO HS 11/16/15 09/13/19 History Metoprolol Tartrate [Lopressor] 50 mg PO BID 11/16/15 09/13/19 History Multivitamins, Thera [Multivitamin 1 tab PO DAILY 11/16/15 09/13/19 History (formulary)] [place]-3 Fatty Acids/Fish Oil [Fish 1 cap PO DAILY 11/16/15 09/13/19 History Oil 1,000 mg Softgel] Vitamin E 1,000 unit PO DAILY 11/16/15 09/13/19 History Clopidogrel [Plavix] 75 mg PO DAILY 04/15/17 09/13/19 History Hylands Leg Cramps Otc 1 tab PO DAILY PRN 04/15/17 09/13/19 History Allergies Allergy/AdvReac Type Severity Reaction Status Date / Time Ntkqqvy-Jfh-Vgu Reductase AdvReac LEG CRAMPS Verified 09/13/19 08:50 Inhibitor Physical Exam Vitals: Vital Signs Temp Pulse Pulse Resp BP BP Pulse Ox 09/13/19 07:00 97.7 F 82 17 167/97 98 09/13/19 06:14 79 09/13/19 05:16 98.5 F 20 166/91 96 09/13/19 03:53 97.7 F 82 16 138/97 98 09/13/19 01:00 80 18 135/82 09/13/19 00:00 82 18 09/12/19 21:38 98.2 F 101 H 18 134/84 95 Intake and Output 09/12/19 09/13/19 09/13/19 22:59 06:59 14:59 Intake Total 0 Balance 0 Intake: Oral 0 Other: Voiding Method Toilet Urinal # Voids 1 Weight 77.111 kg 77.111 kg PHYSICAL EXAMINATION: Patient is lying in the bed comfortably, no acute distress, awake alert and oriented.. HEENT: Normocephalic. Neck is supple. Pupils reactive. Nostrils clear. Oral cavity is moist. Ears reveal no drainage. Neck reveals no JVD, carotid bruits, or thyromegaly. CHEST EXAMINATION: Trachea is central. Symmetrical expansion. Lung andres clear to auscultation and percussion. CARDIAC: Normal S1, S2 with no gallops. No murmurs ABDOMEN: Soft. Bowel sounds normal. No organomegaly. No abdominal bruits. Extremities: reveal no edema. No clubbing or cyanosis Neurologically awake, alert, oriented x3 with well-coordinated movements. No focal deficits noted Skin: No rash or skin lesions. Psychiatric: Coperative. Nonsuicidal Musculoskeletal: No joint swelling or deformity. Normal range of motion. Results CBC & Chem 7: 09/12/19 22:00 09/12/19 22:00 Labs: Abnormal Lab Results - Last 24 Hours (Table) 09/12/19 09/12/19 09/12/19 Range/Units 22:00 22:00 22:00 Plt Count 139 L (150-450) k/uL Lymphocytes # 0.4 L (1.0-4.8) k/uL APTT 21.5 L (22.0-30.0) sec Carbon Dioxide 17 L (22-30) mmol/L BUN 27 H (9-20) mg/dL Glucose 115 H (74-99) mg/dL Plasma Lactic Acid John (0.7-2.0) mmol/L Total Protein 6.1 L (6.3-8.2) g/dL Urine Ketones (Negative) 0709/12/19 09/13/19 Range/Units 22:00 23:39 01:25 Plt Count (150-450) k/uL Lymphocytes # (1.0-4.8) k/uL APTT (22.0-30.0) sec Carbon Dioxide (22-30) mmol/L BUN (9-20) mg/dL Glucose (74-99) mg/dL Plasma Lactic Acid John 4.9 H* 2.8 H* (0.7-2.0) mmol/L Total Protein (6.3-8.2) g/dL Urine Ketones 1+ H (Negative) Thrombosis Risk Factor Assmnt - DVT/VTE Prophylaxis DVT/VTE Prophylaxis: Pharmacologic Prophylaxis ordered - Choose All That Apply Each Risk Factor Represents 3 Points: Age 75 years or older Thrombosis Risk Factor Assessment Total Risk Factor Score: 3 Thrombosis Risk Factor Assessment Level: Moderate Risk Assessment and Plan Assessment: Status post multiple falls on the day of admission due to alcohol intoxication along with dehydration and volume depletion Acute alcohol intoxication on admission Severe lactic acidosis secondary to tissue hypoperfusion Acute metabolic acidosis secondary to EtOH and lactic acidosis Alcohol abuse on daily basis Hypertension History of PA Coronary arteries status post stent placement Chronic back pain Hyperlipidemia Previous history of smoking BPH DVT prophylaxis Plan: Patient will be continued on IV hydration and multivitamins and thiamine. Can monitor withdrawal symptoms. Continue with GI and DVT prophylaxis. Continue with home medications including Plavix, statins and metoprolol and losartan. Lactic acidosis resolved. Patient states that he is able to ambulate to the bathroom today. Alcohol abstinence has been counseled extensively. Follow-up CBC and BMP tomorrow. Further recommendations based on clinical course. Time with Patient: Greater than 30
[2019-09-13] MEDS: THIAMINE 100 MG TAB PO SCH (23:44)
[2019-09-14] MEDS: SODIUM CHLORIDE 0.9% 1,000 ML IV SCH ×2 (04:20→17:30)
[2019-09-14 08:03] LABS: Basophils % (A) 1 %; Eosinophils # (A) 0.1 k/uL (0-0.7); Eosinophils % (A) 3 %; HCT 37.5 % (39.0-53.0); HGB 12.9 gm/dL (13.0-17.5); Lymphocytes # (A) 0.3 k/uL (1.0-4.8); Lymphocytes % (A) 9 %; MCH 34.2 pg (25.0-35.0); MCHC 34.5 g/dL (31.0-37.0); Mean Platelet Volume 8.1; Monocytes # (A) 0.2 k/uL (0-1.0); Monocytes % (A) 8 %; Neutrophils % (A) 77 %; RBC 3.78 m/uL (4.30-5.90); RDW 12.5 % (11.5-15.5); WBC 2.6 k/uL (3.8-10.6)
[2019-09-14 08:11] LABS: African American GFR (CKD) >90 (>60 ml/min/1.73 sqM); Anion Gap 5 mmol/L; Blood Urea Nitrogen 17 mg/dL (9-20); Calcium 8.1 mg/dL (8.4-10.2); Carbon Dioxide 23 mmol/L (22-30); Chloride 109 mmol/L (98-107); Glucose 97 mg/dL (74-99); Non-African American GFR(CKD) 86 (>60 ml/min/1.73 sqM); Potassium 4.1 mmol/L (3.5-5.1); Sodium 137 mmol/L (137-145)
[2019-09-14 08:24] LABS: Platelet Count 86 k/uL (150-450)
[2019-09-14] MEDS: FINASTERIDE 5 MG TAB PO SCH (08:42)
[2019-09-14] MEDS: CLOPIDOGREL 75 MG TAB PO SCH (08:42)
[2019-09-14] MEDS: MULTIVITAMINS, THERA 1 EACH TAB PO SCH (08:42)
[2019-09-14] MEDS: METOPROLOL TARTRATE 50 MG TAB PO SCH ×2 (08:42→20:28)
[2019-09-14] MEDS: THIAMINE 100 MG TAB PO SCH (08:42)
[2019-09-14] MEDS: FOLIC ACID 1 MG TAB PO SCH (08:43)
[2019-09-14] MEDS: CHOLECALCIFEROL 1,000 UNIT TAB PO SCH (08:43)
[2019-09-14] MEDS: FAMOTIDINE 20 MG TAB PO SCH ×2 (08:43→20:28)
--- NOTE | 2019-09-14 16:10 | P.PN ---
Subjective Progress Note Date: 09/14/19 This is 78-year-old gentleman admitted with alcohol intoxication, dehydration, status post fall multiple other medical issues. Maintained on CIWA protocol, multivitamins, folic acid and thiamine. Evaluated by physical therapy with home with home care recommended at discharge. Denies lightheadedness, dizziness or focal deficits. Denies chest pain, palpitations or shortness of breath. Objective - Vital Signs Vital signs: Vital Signs Temp 98.2 F 09/14/19 15:00 Pulse 52 L 09/14/19 15:00 Resp 16 09/14/19 15:00 BP 164/83 09/14/19 15:00 Pulse Ox 95 09/14/19 15:00 Intake & Output 09/13/19 09/14/19 09/14/19 18:59 06:59 18:59 Intake Total 600 250 Balance 600 250 Intake: IV 600 Sodium Chloride 0.9% 1, 600 000 ml @ 75 mls/hr IV . [id number] [facility] Rx#:[id number] Oral 250 Other: Voiding Method Toilet Toilet Toilet Urinal Urinal # Voids 3 2 4 - Exam PHYSICAL EXAMINATION: Patient is lying in the bed comfortably, no acute distress. HEENT: Normocephalic. Neck is supple. Pupils reactive. Nostrils clear. Oral mucosa moist. Neck reveals no JVD, carotid bruits, or thyromegaly. CHEST EXAMINATION: Trachea is central. Symmetrical expansion. Lung andres clear. CARDIAC: Normal S1, S2 with no gallops. No murmurs ABDOMEN: Soft. Bowel sounds normal. No organomegaly. Extremities: reveal no edema. No clubbing or cyanosis Neurologically awake, alert, oriented x3 with well-coordinated movements. No focal deficits noted Skin: No rash, scattered abrasions - Labs CBC & Chem 7: 09/14/19 07:24 09/14/19 07:24 Labs: Abnormal Lab Results - Last 24 Hours (Table) 09/14/19 09/14/19 Range/Units 07:24 07:24 WBC 2.6 L (3.8-10.6) k/uL RBC 3.78 L (4.30-5.90) m/uL Hgb 12.9 L (13.0-17.5) gm/dL Hct 37.5 L (39.0-53.0) % Plt Count 86 L (150-450) k/uL Lymphocytes # 0.3 L (1.0-4.8) k/uL Chloride 109 H (98-107) mmol/L Calcium 8.1 L (8.4-10.2) mg/dL Assessment and Plan Assessment: Status post multiple falls on the day of admission due to alcohol intoxication along with dehydration and volume depletion Acute alcohol intoxication on admission Severe lactic acidosis secondary to tissue hypoperfusion Acute metabolic acidosis secondary to EtOH and lactic acidosis Alcohol abuse on daily basis Hypertension History of [place] Coronary arteries status post stent placement Chronic back pain Hyperlipidemia Previous history of smoking BPH Plan: Continue on current medication regime ,monitoring and symptomatic treatment. Maintain CIWA protocol, monitor for DTs. Increase ambulation as tolerated. Discharge planning in progress for tomorrow. Alcohol cessation re inforced. The impression and plan of care has been dictated as directed. : I performed a history and examination of this patient, discussed the same with the dictator. I agree with the dictator's note ,documented as a scribe. Any additional findings or plans will be noted.
[2019-09-14 20:09] VITALS: RESP 18
[2019-09-14] MEDS: LOSARTAN 50 MG TAB PO SCH (20:28)
[2019-09-14] MEDS ORDERED: ATORVASTATIN 20 MG TAB PO SCH (21:00)
[2019-09-15] MEDS: CLOPIDOGREL 75 MG TAB PO SCH (07:41)
[2019-09-15] MEDS: METOPROLOL TARTRATE 50 MG TAB PO SCH (07:41)
[2019-09-15] MEDS: FAMOTIDINE 20 MG TAB PO SCH (07:41)
[2019-09-15] MEDS: FOLIC ACID 1 MG TAB PO SCH (07:41)
[2019-09-15] MEDS: CHOLECALCIFEROL 1,000 UNIT TAB PO SCH (07:41)
[2019-09-15] MEDS: THIAMINE 100 MG TAB PO SCH (07:42)
[2019-09-15] MEDS: FINASTERIDE 5 MG TAB PO SCH (07:42)
[2019-09-15] MEDS: MULTIVITAMINS, THERA 1 EACH TAB PO SCH (07:42)
[2019-09-15] MEDS: SODIUM CHLORIDE 0.9% 1,000 ML IV SCH (07:43)
[2019-09-15 07:54] VITALS: BP 165/93; PULSE 69; TEMP 97.7
--- NOTE | 2019-09-15 09:20 | P.DS ---
Providers Date of admission: 09/13/19 03:26 Expected date of discharge: 09/15/19 Attending physician: Sindy Blackman Primary care physician: Ramya [facility] Course: Final diagnoses: Status post multiple falls on the day of admission due to alcohol intoxication along with dehydration and volume depletion Acute alcohol intoxication on admission Severe lactic acidosis secondary to tissue hypoperfusion Acute metabolic acidosis secondary to EtOH and lactic acidosis Alcohol abuse on daily basis Hypertension History of [place] Coronary arteries status post stent placement Chronic back pain Hyperlipidemia Previous history of smoking BPH Hospital course:This is 78-year-old gentleman admitted with alcohol intoxication, dehydration, status post fall multiple other medical issues. Maintained on CIWA protocol, multivitamins, folic acid and thiamine. Evaluated by physical therapy with home with home care recommended at discharge. Denies lightheadedness, dizziness or focal deficits. Denies chest pain, palpitations or shortness of breath. Significant clinical improvement. Denies any chest pain, palpitations or shortness of breath. Denies any lightheadedness, dizziness or focal deficits.CIWA score 0. Patient will be discharged home today in a stable condition with guarded prognosis. The impression and plan of care has been dictated as directed. : I performed a history and examination of this patient, discussed the same with the dictator. I agree with the dictator's note ,documented as a scribe. Any additional findings or plans will be noted. Patient Condition at Discharge: Stable Plan - Discharge Summary Discharge Rx Participant: Yes New Discharge Prescriptions: New Folic Acid 1 mg PO DAILY #30 tab Famotidine [Pepcid] 20 mg PO BID #60 tab Thiamine [Vitamin B-1] 100 mg PO DAILY #30 tab Continue Vitamin E 1,000 unit PO DAILY Cholecalciferol [Vitamin D3 (25 Mcg = 1000 Iu)] 2,000 unit PO DAILY Cetirizine HCl 10 mg PO DAILY [place]-3 Fatty Acids/Fish Oil [Fish Oil 1,000 mg Softgel] 1 cap PO DAILY Multivitamins, Thera [Multivitamin (formulary)] 1 tab PO DAILY Metoprolol Tartrate [Lopressor] 50 mg PO BID Losartan Potassium 100 mg PO HS Finasteride [Proscar] 5 mg PO DAILY Atorvastatin [Lipitor] 20 mg PO MOFR@2100 Clopidogrel [Plavix] 75 mg PO DAILY Hylands Leg Cramps Otc 1 tab PO DAILY PRN PRN Reason: legcramps Discharge Medication List Atorvastatin [Lipitor] 20 mg PO MOFR@2100 11/16/15 [History] Cetirizine HCl 10 mg PO DAILY 11/16/15 [History] Cholecalciferol [Vitamin D3 (25 Mcg = 1000 Iu)] 2,000 unit PO DAILY 11/16/15 [History] Finasteride [Proscar] 5 mg PO DAILY 11/16/15 [History] Losartan Potassium 100 mg PO HS 11/16/15 [History] Metoprolol Tartrate [Lopressor] 50 mg PO BID 11/16/15 [History] Multivitamins, Thera [Multivitamin (formulary)] 1 tab PO DAILY 11/16/15 [History] [place]-3 Fatty Acids/Fish Oil [Fish Oil 1,000 mg Softgel] 1 cap PO DAILY 11/16/15 [History] Vitamin E 1,000 unit PO DAILY 11/16/15 [History] Clopidogrel [Plavix] 75 mg PO DAILY 04/15/17 [History] Hylands Leg Cramps Otc 1 tab PO DAILY PRN 04/15/17 [History] Famotidine [Pepcid] 20 mg PO BID #60 tab 09/15/19 [Rx] Folic Acid 1 mg PO DAILY #30 tab 09/15/19 [Rx] Thiamine [Vitamin B-1] 100 mg PO DAILY #30 tab 09/15/19 [Rx] Follow up Appointment(s)/Referral(s): [facility] [NON-STAFF] - Ramya James DO [Primary Care Provider] - 3 Days [facility] Visiting Nurse, [NON-STAFF] - As Needed Activity/Diet/Wound Care/Special Instructions: no etoh Discharge Disposition: HOME WITH HOME HEALTH SERVICES
== END 2019-09-15 10:57 | disposition home health service (06) ==
LOC: EC 21:37 → 4SSUR 09-13 03:26
PROVIDERS: ADMIT Hospitalist; ATTEND Hospitalist
DX: F10.129 Alcohol abuse with intoxication, unspecified (principal); R29.6 Repeated falls; E86.0 Dehydration; E87.2 Acidosis; I10 Essential (primary) hypertension; I25.2 Old myocardial infarction; Z95.5 Presence of coronary angioplasty implant and graft; G89.29 Other chronic pain; M54.9 Dorsalgia, unspecified; E78.5 Hyperlipidemia, unspecified; Z87.891 Personal history of nicotine dependence; N40.0 Benign prostatic hyperplasia without lower urinary tract symptoms; K40.90 Unilateral inguinal hernia, without obstruction or gangrene, not specified as recurrent; G43.809 Other migraine, not intractable, without status migrainosus; I25.10 Atherosclerotic heart disease of native coronary artery without angina pectoris; M47.896 Other spondylosis, lumbar region; Y90.6 Blood alcohol level of 120-199 mg/100 ml; Z92.3 Personal history of irradiation; Z03.818 Encounter for observation for suspected exposure to other biological agents ruled out; Z79.899 Other long term (current) drug therapy; Z79.02 Long term (current) use of antithrombotics/antiplatelets; Z88.8 Allergy status to other drugs, medicaments and biological substances; Z91.09 Other allergy status, other than to drugs and biological substances; Z98.890 Other specified postprocedural states; Z90.89 Acquired absence of other organs; Z98.52 Vasectomy status
CPT/HCPCS: 96361 ×2; 96360; 99285; 36415 ×2; 93005; 97116; 97161; 97535; 97165; 83880; 80053; 80048; 82550; 83605 ×2; 83735; 84100; 84443; 84484; 85025 ×2; 85610; 85730; 81003; 73562; 72100; 72170; 71045; G0378 ×3; G0480; U0003; S0138 ×3; 80320

== ENCOUNTER → 2020-01-07 | Outpatient (CLI) | payer MEDICARE, OTHER | END | disposition home or self-care (01) | LOC: LABWHC1 11:13 | PROVIDERS: ATTEND Radiology Radiation Oncology | DX: C61 Malignant neoplasm of prostate (principal) | CPT/HCPCS: 36415; 84153 ==

== ENCOUNTER → 2020-02-03 | Outpatient (CLI) | payer MEDICARE, OTHER ==
--- NOTE | 2020-02-04 05:01 | CT ---
EXAMINATION TYPE: CT abdomen pelvis w con DATE OF EXAM: 02/03/2020 COMPARISON: 11/16/2015 HISTORY: 79-year-old male K92.1, bloody stools TECHNIQUE: Contiguous axial scanning of the abdomen and pelvis following administration of 100 ml Iso francesco 300 IV contrast. Delayed images through the kidneys and bladder and coronal/sagittal reconstruct ions performed. CT DLP: 1021 mGycm Automated exposure control for dose reduction was used. FINDINGS: Heart normal size with scattered three-vessel coronary artery calcifications. Trace anterior basilar pericardial fluid. Minimal emphysematous change in the visualized lower lungs. 4 mm peripheral left basilar pulmonary no dule. Not included in the field of view on the 2016 exam. A tiny calcified granuloma posterior right base is unchanged from then. No pleural effusion. No focal liver lesion or biliary ductal dilatation. Portal venous system is patent. Gallbladder, adrenal glands, left kidney, spleen, and pancreas appear within normal limits. 7 mm hypodensity posterior mid pole right kidney too small for accurate CT characterization, likely t iny cyst. No nephrolithiasis or hydronephrosis. Moderate atherosclerotic calcifications infrarenal abdominal aorta and iliac arteries without aneurys m. No dilated small bowel, free fluid, or free air. Redemonstrated mid and left abdominal myles mesentery. New from 2015 is a moderately enlarged 1.6 cm left mesenteric lymph node within this region, axial image 39 and coronal image 43. Additional smalle r nonenlarged and borderline size lymph nodes are unchanged in this region. Oral contrast has progressed into the descending colon. Redundant sigmoid colon. Minimal diverticular change in the proximal sigmoid colon. No pericolonic inflammatory change. Mild circumferential bladder wall thickening. Prostate gland enlargement 5.2 cm wide versus 6.3 cm wi de, previously. Mild presacral stranding is nonspecific. Some additional nonspecific stranding in the left greater than right adnexa as well as mild edema in the perirenal fat. No abnormal fluid collect ion in the pelvis or pelvic lymphadenopathy. Bones: Mild to moderate degenerative change at the hips and mild at the left SI joint. Moderate to ad vanced degenerative disc disease throughout the visualized spine and hypertrophic facet arthropathy m id to lower lumbar spine. IMPRESSION: 1. REDEMONSTRATED MID AND LEFT ABDOMINAL MYLES MESENTERY SUGGESTING CHRONIC MESENTERIC PANNICULITIS. HOWEVER, NEW FROM 2015 IS A MODERATELY ENLARGED 1.6 CM MESENTERIC LYMPH NODE IN THIS REGION THAT COUL D REPRESENT AN ACUTE EPISODE OF THE PANNICULITIS. 3-6 MONTH FOLLOW-UP CT RECOMMENDED TO REASSESS E HONG LYMPHOMA CAN ALSO HAVE THIS APPEARANCE. 2. A 4 MM LEFT BASILAR PULMONARY NODULE NOT SEEN IN 2016. SIX-MONTH FOLLOW-UP CT CHEST RECOMMENDED TO REASSESS AND ALSO TO SURVEY THE ENTIRE LUNGS. 3. MILD CIRCUMFERENTIAL BLADDER WALL THICKENING COULD REFLECT CHRONIC BLADDER WALL HYPERTROPHY OR CYS TITIS. 4. PROSTATOMEGALY AT 5.2 CM WIDE SHOWS SOME IMPROVEMENT FROM 2016 WHERE IT MEASURED 6.3 CM.
== END | disposition home or self-care (01) ==
LOC: RADCTMAIN 13:50
PROVIDERS: ATTEND Family Medicine
DX: N40.0 Benign prostatic hyperplasia without lower urinary tract symptoms (principal); N32.89 Other specified disorders of bladder; K92.1 Melena
CPT/HCPCS: 82565; 84520; 74177; 36415; Q9967

== ENCOUNTER 2020-03-24 09:08 | Day surgery (SDC) | payer MEDICARE, OTHER ==
[2020-03-22 15:29] VITALS: BMI 24.3
[~2020-03-24 09:08] MED LIST: LACTATED RINGERS 1,000 ML IV SCH; LIDOCAINE 1% (10MG/ML) FOR IV START INTRADERMA PRN
[2020-03-24 09:42] VITALS: TEMP 97.7
[2020-03-24] MEDS ORDERED: GLUCAGON 1 MG/ML VIAL ONE (10:45)
[2020-03-24] MEDS ORDERED: PROPOFOL 10 MG/ML 20 ML VIAL IV ONE (10:45)
--- NOTE | 2020-03-24 10:52 | P.GSHP ---
History of Present Illness H&P Date: 03/24/20 Chief Complaint: GI bleed This a 79-year-old male who presents today for colonoscopy. He's had issues with GI bleed. Past Medical History Past Medical History: Hyperlipidemia, Hypertension, Myocardial Infarction ([place]) Additional Past Medical History / Comment(s): UNKNOWN DATE OF [place], Last Myocardial Infarction Date:: UNKNOWN History of Any Multi-Drug Resistant Organisms: None Reported Past Surgical History: Heart Catheterization, Heart Catheterization With Stent, Orthopedic Surgery, Tonsillectomy Additional Past Surgical History / Comment(s): JONY SHOULDER SURGERIES, VASECTOMY, . HEART CATH WITH STENT FEB 2001, HEART CATH 2001, 2002 & 2008. Past Anesthesia/Blood Transfusion Reactions: No Reported Reaction Date of Last Stent Placement:: FEBRUARY 2001 Smoking Status: Former smoker - Past Family History Mother Family Medical History: No Reported History Medications and Allergies Home Medications Medication Instructions Recorded Confirmed Type Atorvastatin [Lipitor] 20 mg PO MOFR@2100 11/16/15 03/24/20 History Cetirizine HCl 10 mg PO DAILY 11/16/15 03/24/20 History Cholecalciferol [Vitamin D3 (25 2,000 unit PO DAILY 11/16/15 03/24/20 History Mcg = 1000 Iu)] Finasteride [Proscar] 5 mg PO DAILY 11/16/15 03/24/20 History Losartan Potassium 100 mg PO HS 11/16/15 03/24/20 History Metoprolol Tartrate [Lopressor] 50 mg PO BID 11/16/15 03/24/20 History Multivitamins, Thera [Multivitamin 1 tab PO DAILY 11/16/15 03/24/20 History (formulary)] [place]-3 Fatty Acids/Fish Oil [Fish 1 cap PO DAILY 11/16/15 03/24/20 History Oil 1,000 mg Softgel] Vitamin E 1,000 unit PO DAILY 11/16/15 03/24/20 History Clopidogrel [Plavix] 75 mg PO DAILY 04/15/17 03/24/20 History Hylands Leg Cramps Otc 1 tab PO DAILY PRN 04/15/17 03/24/20 History Folic Acid 1 mg PO DAILY #30 tab 09/15/19 03/24/20 Rx Thiamine [Vitamin B-1] 100 mg PO DAILY #30 tab 07/14/20 01/21/21 Rx Famotidine [Pepcid] 20 mg PO DAILY 03/22/20 03/24/20 History Allergies Allergy/AdvReac Type Severity Reaction Status Date / Time Xqbsbks-[id number]-Hag Reductase AdvReac LEG CRAMPS Verified 03/24/20 09:45 Inhibitor Surgical - Exam Vital Signs Temp Pulse Resp BP Pulse Ox 97.7 F 661 H 16 163/96 98 03/24/20 09:34 03/24/20 09:34 03/24/20 09:34 03/24/20 09:34 03/24/20 09:34 - General well developed, well nourished, no distress - Eyes PERRL - ENT normal pinna - Neck no masses - Cardiovascular Rhythm: regular - Abdomen Abdomen: soft, non tender Assessment and Plan Assessment: GI bleed. We'll perform colonoscopy
--- NOTE | 2020-03-24 11:13 | P.OP ---
Date of Procedure: 03/24/20 Preoperative Diagnosis: GI bleed Postoperative Diagnosis: Hepatic flexure polyp pathology pending Procedure(s) Performed: Colonoscopy Anesthesia: MAC Surgeon: Enrrique Burns Condition: stable Disposition: PACU Description of Procedure: The patient's placed on the endoscopy table in the lateral position. He received IV sedation. Digital rectal exam was performed which revealed no abnormalities. Flexible colonoscope was then placed anus passed throughout the entire colon. Ileocecal valve visualized. Cecum and ascending colon. At the level of the ptotic flexure there was a large pedunculated polyp. The polyp was removed with In combination of snare and the cold forcep. The polyp was friable and bleeding. Scope was withdrawn. Remainder of the transverse colon descending colon and sigmoid colon appeared normal. Scope was then brought back the rectum and this appeared normal. Scope was withdrawn for patient.
[2020-03-24 11:21] VITALS: RESP 18
[2020-03-24 11:45] VITALS: BP 187/92; PULSE 64
--- NOTE | 2020-03-24 12:25 | P.OP ---
Date of Procedure: 03/24/20 Preoperative Diagnosis: History: Polyps Postoperative Diagnosis: Severe diverticulosis of left colon and sigmoid Procedure(s) Performed: Colonoscopy Anesthesia: MAC Surgeon: Enrrique Burns Pathology: none sent Condition: stable Disposition: PACU Description of Procedure: Patient's placed on the endoscopy table in the lateral position. He received IV sedation. Digital rectal exam was performed which revealed no abnormalities. The flexible colonoscope was then placed patient anus and passed throughout the entire colon. The ileocecal valve was visualized. The cecum, ascending and transverse colon appeared normal. In the descending and sigmoid colon there was severe diverticulosis noted. There is no evidence of diverticula is. Scope was then brought back the rectum this appeared normal. Scope was withdrawn for patient.
== END 2020-03-24 12:25 | disposition home or self-care (01) ==
LOC: ORWHC2ENDO 09:08
PROVIDERS: ATTEND Surgery
DX: D12.3 Benign neoplasm of transverse colon (principal); K57.30 Diverticulosis of large intestine without perforation or abscess without bleeding; I10 Essential (primary) hypertension; I25.10 Atherosclerotic heart disease of native coronary artery without angina pectoris; I25.2 Old myocardial infarction; E78.5 Hyperlipidemia, unspecified; Z88.8 Allergy status to other drugs, medicaments and biological substances; Z79.02 Long term (current) use of antithrombotics/antiplatelets; Z79.899 Other long term (current) drug therapy; Z95.5 Presence of coronary angioplasty implant and graft; Z98.890 Other specified postprocedural states; Z98.52 Vasectomy status; Z87.891 Personal history of nicotine dependence
CPT/HCPCS: 45385; 88305; J1610; J2704; 44404; 45380

== ENCOUNTER → 2020-05-12 | Outpatient (CLI) | payer MEDICARE, OTHER | END | disposition home or self-care (01) | LOC: LABWHC1 07:03 | PROVIDERS: ATTEND Radiology Radiation Oncology | DX: C61 Malignant neoplasm of prostate (principal); Z87.891 Personal history of nicotine dependence; Z92.3 Personal history of irradiation | CPT/HCPCS: 36415; 84153 ==

== ENCOUNTER 2020-09-08 08:49 | Day surgery (SDC) | payer MEDICARE, OTHER ==
[2020-09-07 10:03] VITALS: BMI 23.8
[2020-09-08 09:39] VITALS: TEMP 97.7
[2020-09-08] MEDS ORDERED: PROPOFOL 10 MG/ML 20 ML VIAL IV ONE (10:03)
[2020-09-08] MEDS ORDERED: LIDOCAINE 1% INJ 10MG/ML (20 ML MDV) ONE (10:03)
--- NOTE | 2020-09-08 10:06 | P.GSHP ---
History of Present Illness H&P Date: 09/08/20 Chief Complaint: GI bleed, history of colon polyps This a 79-year-old male who has had issues with GI bleed. Patient has history of colon polyps hepatic flexure. He presents today for colonoscopy Past Medical History Past Medical History: Cancer, Hyperlipidemia, Hypertension, Myocardial Infarction ([place]), Prostate Disorder Additional Past Medical History / Comment(s): rectal bleeding since March after a colonoscopy, hx. prostate cancer >1 year ago-had radiation & surg. but not removal of Last Myocardial Infarction Date:: 2000 History of Any Multi-Drug Resistant Organisms: None Reported Past Surgical History: Heart Catheterization, Heart Catheterization With Stent, Orthopedic Surgery, Tonsillectomy Additional Past Surgical History / Comment(s): JONY SHOULDER SURGERIES, VASECTOMY, . HEART CATH WITH STENT FEB 2001, HEART CATH 2001, 2002 & 2008, prostate surg., colonoscopy in Mar. Past Anesthesia/Blood Transfusion Reactions: No Reported Reaction Date of Last Stent Placement:: FEBRUARY 2001 Smoking Status: Former smoker - Past Family History Mother Family Medical History: No Reported History Medications and Allergies Home Medications Medication Instructions Recorded Confirmed Type Atorvastatin [Lipitor] 20 mg PO MOFR@2100 11/16/15 09/08/20 History Cholecalciferol [Vitamin D3 (25 2,000 unit PO DAILY 11/16/15 09/08/20 History Mcg = 1000 Iu)] Finasteride [Proscar] 5 mg PO DAILY 11/16/15 09/08/20 History Losartan Potassium 100 mg PO HS 11/16/15 09/08/20 History Metoprolol Tartrate [Lopressor] 50 mg PO BID 11/16/15 09/08/20 History Multivitamins, Thera [Multivitamin 1 tab PO DAILY 11/16/15 09/08/20 History (formulary)] [place]-3 Fatty Acids/Fish Oil [Fish 1 cap PO DAILY 11/16/15 09/08/20 History Oil 1,000 mg Softgel] Vitamin E (Dl,Tocopheryl Acet) 1,000 unit PO DAILY 11/16/15 09/08/20 History [Vitamin E] Clopidogrel [Plavix] 75 mg PO DAILY 04/15/17 09/08/20 History Folic Acid 1 mg PO DAILY #30 tab 09/15/19 09/08/20 Rx Thiamine [Vitamin B-1] 100 mg PO DAILY #30 tab 09/15/19 09/08/20 Rx Allergies Allergy/AdvReac Type Severity Reaction Status Date / Time Olelusm-Wzh-Qsb Reductase AdvReac LEG CRAMPS Verified 09/08/20 09:25 Inhibitor Surgical - Exam Vital Signs Temp Pulse BP Pulse Ox 97.7 F 68 140/88 99 09/08/20 09:38 09/08/20 09:38 09/08/20 09:38 09/08/20 09:38 - General well developed, well nourished, no distress - Eyes PERRL - ENT normal pinna - Neck no masses - Respiratory normal expansion - Cardiovascular Rhythm: regular - Abdomen Abdomen: soft, non tender Assessment and Plan Assessment: History of GI bleed and colon polyps. We'll perform colonoscopy
--- NOTE | 2020-09-08 10:20 | P.OP ---
Date of Procedure: 09/08/20 Preoperative Diagnosis: Rectal bleeding Colon polyp Postoperative Diagnosis: Colon polyp at hepatic flexure Procedure(s) Performed: Colonoscopy Anesthesia: MAC Surgeon: Enrrique Burns Pathology: other (Polyp biopsied) Condition: stable Disposition: PACU Description of Procedure: The patient's placed on the endoscopy table in the lateral position. He received IV sedation. Digital rectal exam was performed which revealed no ebonized. The flexible colonoscope was then placed patient anus and passed throughout entire colon. Ileocecal valve was visualized. Cecum, ascending colon appeared normal. The ileocecal valve there was a polyp seen this was too large removed with the scope. Was biopsied. It was biopsied the cold forcep. The area was tattooed. Scope was withdrawn. Remainder of the transverse colon descending colon sigmoid colon appeared normal. Scope was brought back the rectum this appeared normal. Scope withdrawn for patient.
[2020-09-08 10:24] VITALS: RESP 16
[2020-09-08] MEDS ORDERED: LABETALOL 5 MG/ML VIAL MDV IVP ONE (10:38)
[2020-09-08 10:51] VITALS: BP 168/83; PULSE 58
== END 2020-09-08 11:24 | disposition home or self-care (01) ==
LOC: ORWHC2ENDO 08:49
PROVIDERS: ATTEND Surgery
DX: K63.5 Polyp of colon (principal); I25.2 Old myocardial infarction; I10 Essential (primary) hypertension; E78.5 Hyperlipidemia, unspecified; Z85.46 Personal history of malignant neoplasm of prostate; Z87.19 Personal history of other diseases of the digestive system; Z87.891 Personal history of nicotine dependence; Z79.02 Long term (current) use of antithrombotics/antiplatelets; Z88.8 Allergy status to other drugs, medicaments and biological substances
CPT/HCPCS: 45385; 45380; 88305; 44404; J2001; J2704

== ENCOUNTER → 2020-11-28 | Outpatient (CLI) | payer MEDICARE, OTHER | END | disposition home or self-care (01) | LOC: LABWHC1 14:05 | PROVIDERS: ATTEND Radiology Radiation Oncology | DX: C61 Malignant neoplasm of prostate (principal); Z92.3 Personal history of irradiation; Z87.891 Personal history of nicotine dependence | CPT/HCPCS: 36415; 84153 ==

== ENCOUNTER 2022-01-15 16:27 | Observation (INO) | payer MEDICARE, OTHER ==
[2022-01-15] MEDS ORDERED: SODIUM CHLORIDE 0.9% 1,000 ML IV STA (18:30)
--- NOTE | 2022-01-15 18:59 | ED ---
General Adult HPI - General Chief complaint: Weakness Stated complaint: MAXI, weakness Time Seen by Provider: 01/15/22 18:17 Source: patient, RN notes reviewed, old records reviewed Mode of arrival: wheelchair Limitations: no limitations - History of Present Illness Initial comments: Patient is an 81-year-old male with past medical history remarkable for prior [place], hypertension, prostate cancer, Covid infection 1 month ago who presents emergency Department complaining of persistent weakness, shortness of breath since diagnosis of Covid. States he has not improved. Also believes he may be mildly constipated. Endorses lack of appetite. Endorses exertional dyspnea. Denies orthopnea, lower extremity edema, PND. Denies any chest pain. Denies abdominal pain, nausea, vomiting. Denies any diarrhea. Denies any other sick contacts. Denies urinary complaints. His no other acute point at this time. Is uncertain what is causing his shortness of breath and states it seems to be unchanged since he was diagnosed, and the only changes less coughing, as well as loss of a rhinorrhea but that is present. Denies any fevers. Presents for further evaluation of this time.Describes weakness as generalized. No focal weakness. No sensory deficits. - Related Data Home Medications Medication Instructions Recorded Confirmed Atorvastatin [Lipitor] 20 mg PO MOFR@2100 11/16/15 09/08/20 Cholecalciferol [Vitamin D3 (25 2,000 unit PO DAILY 11/16/15 09/08/20 Mcg = 1000 Iu)] Finasteride [Proscar] 5 mg PO DAILY 11/16/15 09/08/20 Losartan Potassium 100 mg PO HS 11/16/15 09/08/20 Metoprolol Tartrate [Lopressor] 50 mg PO BID 11/16/15 09/08/20 Multivitamins, Thera [Multivitamin 1 tab PO DAILY 11/16/15 09/08/20 (formulary)] [place]-3 Fatty Acids/Fish Oil [Fish 1 cap PO DAILY 11/16/15 09/08/20 Oil 1,000 mg Softgel] Vitamin E (Dl,Tocopheryl Acet) 1,000 unit PO DAILY 11/16/15 09/08/20 [Vitamin E] Clopidogrel [Plavix] 75 mg PO DAILY 04/15/17 09/08/20 Previous Rx's Medication Instructions Recorded Folic Acid 1 mg PO DAILY #30 tab 09/15/19 Thiamine [Vitamin B-1] 100 mg PO DAILY #30 tab 09/15/19 Allergies Allergy/AdvReac Type Severity Reaction Status Date / Time Viasptk-APN-WiM Reductase AdvReac LEG CRAMPS Verified 09/08/20 09:25 Inhibitor [Kxogujk-Imt-Lsc Reductase Inhibitor] Review of Systems ROS Statement: Those systems with pertinent positive or pertinent negative responses have been documented in the HPI. Review of Systems: CONST: Denies fever EYES: Denies blurry vision ENT: Denies nasal congestion C/V: Denies Chest pain RESP: Denies shortness of breath GI: Denies abdominal pain : Denies dysuria SKIN: Denies rash. MSK: Denies joint pain. NEURO: Denies headache ROS Other: All systems not noted in ROS Statement are negative. Past Medical History Past Medical History: Cancer, Hyperlipidemia, Hypertension, Myocardial Infarction ([place]), Prostate Disorder Additional Past Medical History / Comment(s): rectal bleeding since March after a colonoscopy, hx. prostate cancer >1 year ago-had radiation & surg. but not removal of Last Myocardial Infarction Date:: 2000 History of Any Multi-Drug Resistant Organisms: None Reported Past Surgical History: Heart Catheterization, Heart Catheterization With Stent, Orthopedic Surgery, Tonsillectomy Additional Past Surgical History / Comment(s): JONY SHOULDER SURGERIES, VASECTOMY, . HEART CATH WITH STENT FEB 2001, HEART CATH 2001, 2002 & 2008, prostate surg., colonoscopy in Mar. Past Anesthesia/Blood Transfusion Reactions: No Reported Reaction Date of Last Stent Placement:: FEBRUARY 2001 Past Psychological History: No Psychological Hx Reported Smoking Status: Former smoker - Past Family History Mother Family Medical History: No Reported History General Exam - General Exam Comments Initial Comments: General: Appears in no acute distress. HEAD: Normal with no signs of head trauma. EYES: PERRLA, EOMI, conjunctiva normal, no discharge. ENT: Hearing grossly intact, normal oropharynx. Dry mucous membranes. RESPIRATORY: Clear breath sounds bilaterally. No wheezes, rales, or rhonchi. No hypoxia. No increased work of breathing. C/V: Tachycardia. S1 and S2 auscultated, no edema, peripheral pulses 2+ and intact throughout ABD: Abd is soft, nontender, nondistended EXT: Normal range of motion, no obvious deformity SKIN: No rashes or lesions observed on exposed skin. NEURO: Alert and oriented x 4. Cranial nerves II-XII intact. No focal sensory or strength deficits. NIH of 0. GCS is 15. Limitations: no limitations Course Vital Signs 01/15/22 01/15/22 16:51 21:02 Temperature 98.4 F 98.0 F Pulse Rate 110 H 98 Respiratory 20 18 Rate Blood Pressure 138/77 140/78 O2 Sat by Pulse 100 99 Oximetry Medical Decision Making - Medical Decision Making Based on the patient's presentation and physical exam, I'm concerned for multiple causes for possible weakness. Patient appears mildly dehydrated. Does have a cardiac history. We will obtain broad workup including infectious labs, cardiopulmonary labs. With the recent diagnosis of COVID-19 one month ago as well as persistent exertional shortness of breath, and mild tachycardia, we will obtain a screening d-dimer. He is not hypoxic. No respiratory distress. Patient was in agreement with this plan. He'll be given IV fluids. Vital signs otherwise are within acceptable limits. Patient endorsed to nursing staff dark stools over the last month as well. Occult blood was therefore obtained. No gross blood on rectal exam. Patient has been taking aspirin and Plavix. No other blood thinners. Therefore rectal exam was performed and occult blood was sent. Patient's laboratory studies were remarkable for a normal age-adjusted d-dimer 0.63. Patient is anemic with hemoglobin 10.1 which seems to be slightly lower than his baseline of 12.9. However it is been multiple years since the last blood work was obtained in her system. Patient's coags are within acceptable limits. Troponin is undetectable. BNP is within normal limits. Occult blood is positive. Covid and flu negative. Remainder of the workup is unremarkable. KUB and chest x-rays were interpreted by myself. Chest x-ray reveals no evidence of infiltrate, no pneumothorax, no bony traumatic process. Abdominal x-ray reveals some stool burden without evidence of obstruction. No free air under the diaphragm. After the patient. Due to his what appears to be symptomatic anemia from a study GI bleed over the last month with dark stools, I did recommend we admit him to the hospital. We will obtain CT abdomen and pelvis over slight discomfort with the GI bleed secondary to occult blood. He was in agreement with this plan. CT imaging is interpreted by myself reveals no obvious obstruction. No obvious infection. No evidence of extravasation to suggest active GI hemorrhage. Radiology is also concerned about and large prostate which the patient has a history of. Diverticulosis without diverticulitis. I treated the patient with findings. I would still like to admit him to obtain repeat labs in the morning. He was in agreement this plan. Vital signs remained within acceptable limits. I spoke with the admitting physician, Dr. Sa payton who accepted the patient. We will obtain repeat labs in the morning. He requested Dr. Mckeon be consulted, and she was. Patient was admitted in stable condition. - Lab Data Result diagrams: 01/15/22 19:13 01/15/22 19:13 Lab Results 01/15/22 01/15/22 01/15/22 Range/Units 19:13 19:13 19:13 WBC 7.6 (3.8-10.6) k/uL RBC 3.05 L (4.30-5.90) m/uL Hgb 10.1 L (13.0-17.5) gm/dL Hct 28.8 L (39.0-53.0) % MCV 94.5 (80.0-100.0) fL MCH 33.2 (25.0-35.0) pg MCHC 35.1 (31.0-37.0) g/dL RDW 13.5 (11.5-15.5) % Plt Count 189 (150-450) k/uL MPV 10.2 Neutrophils % 87 % Lymphocytes % 8 % Monocytes % 4 % Eosinophils % 1 % Basophils % 1 % Neutrophils # 6.5 (1.3-7.7) k/uL Lymphocytes # 0.6 L (1.0-4.8) k/uL Monocytes # 0.3 (0-1.0) k/uL Eosinophils # 0.0 (0-0.7) k/uL Basophils # 0.0 (0-0.2) k/uL PT 10.7 (9.0-12.0) sec INR 1.0 (<1.2) APTT 21.7 L (22.0-30.0) sec D-Dimer 0.63 H (<0.60) mg/L FEU Sodium 136 L (137-145) mmol/L Potassium 4.0 (3.5-5.1) mmol/L Chloride 108 H (98-107) mmol/L Carbon Dioxide 21 L (22-30) mmol/L Anion Gap 7 mmol/L BUN 51 H (9-20) mg/dL Creatinine 0.94 (0.66-1.25) mg/dL Est GFR (CKD-EPI)AfAm 89 (>60 ml/min/1.73 sqM) Est GFR (CKD-EPI)NonAf 77 (>60 ml/min/1.73 sqM) Glucose 135 H (74-99) mg/dL Plasma Lactic Acid John (0.7-2.0) mmol/L Calcium 9.1 (8.4-10.2) mg/dL Magnesium 2.1 (1.6-2.3) mg/dL Total Bilirubin 0.5 (0.2-1.3) mg/dL AST 31 (17-59) U/L ALT 32 (4-49) U/L Alkaline Phosphatase 39 (38-126) U/L Troponin I (0.000-0.034) ng/mL NT-Pro-B Natriuret Pep pg/mL Total Protein 5.6 L (6.3-8.2) g/dL Albumin 3.8 (3.5-5.0) g/dL Urine Color Urine Appearance (Clear) Urine pH (5.0-8.0) Ur Specific G[place] (1.001-1.035) Urine Protein (Negative) Urine Glucose (UA) (Negative) Urine Ketones (Negative) Urine Blood (Negative) Urine Nitrite (Negative) Urine Bilirubin (Negative) Urine Urobilinogen (<2.0) mg/dL Ur Leukocyte Esterase (Negative) Stool Occult Blood (Negative) Coronavirus (PCR) (Not Detectd) Influenza Type A RNA (Not Detectd) Influenza Type B (PCR) (Not Detectd) 01/15/22 01/15/22 01/15/22 Range/Units 19:13 19:14 19:14 WBC (3.8-10.6) k/uL RBC (4.30-5.90) m/uL Hgb (13.0-17.5) gm/dL Hct (39.0-53.0) % MCV (80.0-100.0) fL MCH (25.0-35.0) pg MCHC (31.0-37.0) g/dL RDW (11.5-15.5) % Plt Count (150-450) k/uL MPV Neutrophils % % Lymphocytes % % Monocytes % % Eosinophils % % Basophils % % Neutrophils # (1.3-7.7) k/uL Lymphocytes # (1.0-4.8) k/uL Monocytes # (0-1.0) k/uL Eosinophils # (0-0.7) k/uL Basophils # (0-0.2) k/uL PT (9.0-12.0) sec INR (<1.2) APTT (22.0-30.0) sec D-Dimer (<0.60) mg/L FEU Sodium (137-145) mmol/L Potassium (3.5-5.1) mmol/L Chloride (98-107) mmol/L Carbon Dioxide (22-30) mmol/L Anion Gap mmol/L BUN (9-20) mg/dL Creatinine (0.66-1.25) mg/dL Est GFR (CKD-EPI)AfAm (>60 ml/min/1.73 sqM) Est GFR (CKD-EPI)NonAf (>60 ml/min/1.73 sqM) Glucose (74-99) mg/dL Plasma Lactic Acid John 1.2 (0.7-2.0) mmol/L Calcium (8.4-10.2) mg/dL Magnesium (1.6-2.3) mg/dL Total Bilirubin (0.2-1.3) mg/dL AST (17-59) U/L ALT (4-49) U/L Alkaline Phosphatase (38-126) U/L Troponin I <0.012 (0.000-0.034) ng/mL NT-Pro-B Natriuret Pep pg/mL Total Protein (6.3-8.2) g/dL Albumin (3.5-5.0) g/dL Urine Color Light Yellow Urine Appearance Clear (Clear) Urine pH 5.0 (5.0-8.0) Ur Specific [place] 1.023 (1.001-1.035) Urine Protein Negative (Negative) Urine Glucose (UA) Negative (Negative) Urine Ketones 1+ H (Negative) Urine Blood Negative (Negative) Urine Nitrite Negative (Negative) Urine Bilirubin Negative (Negative) Urine Urobilinogen <2.0 (<2.0) mg/dL Ur Leukocyte Esterase Negative (Negative) Stool Occult Blood (Negative) Coronavirus (PCR) (Not Detectd) Influenza Type A RNA (Not Detectd) Influenza Type B (PCR) (Not Detectd) 01/15/22 01/15/22 01/15/22 Range/Units 19:14 19:17 19:17 WBC (3.8-10.6) k/uL RBC (4.30-5.90) m/uL Hgb (13.0-17.5) gm/dL Hct (39.0-53.0) % MCV (80.0-100.0) fL MCH (25.0-35.0) pg MCHC (31.0-37.0) g/dL RDW (11.5-15.5) % Plt Count (150-450) k/uL MPV Neutrophils % % Lymphocytes % % Monocytes % % Eosinophils % % Basophils % % Neutrophils # (1.3-7.7) k/uL Lymphocytes # (1.0-4.8) k/uL Monocytes # (0-1.0) k/uL Eosinophils # (0-0.7) k/uL Basophils # (0-0.2) k/uL PT (9.0-12.0) sec INR (<1.2) APTT (22.0-30.0) sec D-Dimer (<0.60) mg/L FEU Sodium (137-145) mmol/L Potassium (3.5-5.1) mmol/L Chloride (98-107) mmol/L Carbon Dioxide (22-30) mmol/L Anion Gap mmol/L BUN (9-20) mg/dL Creatinine (0.66-1.25) mg/dL Est GFR (CKD-EPI)AfAm (>60 ml/min/1.73 sqM) Est GFR (CKD-EPI)NonAf (>60 ml/min/1.73 sqM) Glucose (74-99) mg/dL Plasma Lactic Acid John (0.7-2.0) mmol/L Calcium (8.4-10.2) mg/dL Magnesium (1.6-2.3) mg/dL Total Bilirubin (0.2-1.3) mg/dL AST (17-59) U/L ALT (4-49) U/L Alkaline Phosphatase (38-126) U/L Troponin I (0.000-0.034) ng/mL NT-Pro-B Natriuret Pep 131 pg/mL Total Protein (6.3-8.2) g/dL Albumin (3.5-5.0) g/dL Urine Color Urine Appearance (Clear) Urine pH (5.0-8.0) Ur Specific [place] (1.001-1.035) Urine Protein (Negative) Urine Glucose (UA) (Negative) Urine Ketones (Negative) Urine Blood (Negative) Urine Nitrite (Negative) Urine Bilirubin (Negative) Urine Urobilinogen (<2.0) mg/dL Ur Leukocyte Esterase (Negative) Stool Occult Blood (Negative) Coronavirus (PCR) Not Detected (Not Detectd) Influenza Type A RNA Not Detected (Not Detectd) Influenza Type B (PCR) Not Detected (Not Detectd) 01/15/22 Range/Units 19:40 WBC (3.8-10.6) k/uL RBC (4.30-5.90) m/uL Hgb (13.0-17.5) gm/dL Hct (39.0-53.0) % MCV (80.0-100.0) fL MCH (25.0-35.0) pg MCHC (31.0-37.0) g/dL RDW (11.5-15.5) % Plt Count (150-450) k/uL MPV Neutrophils % % Lymphocytes % % Monocytes % % Eosinophils % % Basophils % % Neutrophils # (1.3-7.7) k/uL Lymphocytes # (1.0-4.8) k/uL Monocytes # (0-1.0) k/uL Eosinophils # (0-0.7) k/uL Basophils # (0-0.2) k/uL PT (9.0-12.0) sec INR (<1.2) APTT (22.0-30.0) sec D-Dimer (<0.60) mg/L FEU Sodium (137-145) mmol/L Potassium (3.5-5.1) mmol/L Chloride (98-107) mmol/L Carbon Dioxide (22-30) mmol/L Anion Gap mmol/L BUN (9-20) mg/dL Creatinine (0.66-1.25) mg/dL Est GFR (CKD-EPI)AfAm (>60 ml/min/1.73 sqM) Est GFR (CKD-EPI)NonAf (>60 ml/min/1.73 sqM) Glucose (74-99) mg/dL Plasma Lactic Acid John (0.7-2.0) mmol/L Calcium (8.4-10.2) mg/dL Magnesium (1.6-2.3) mg/dL Total Bilirubin (0.2-1.3) mg/dL AST (17-59) U/L ALT (4-49) U/L Alkaline Phosphatase (38-126) U/L Troponin I (0.000-0.034) ng/mL NT-Pro-B Natriuret Pep pg/mL Total Protein (6.3-8.2) g/dL Albumin (3.5-5.0) g/dL Urine Color Urine Appearance (Clear) Urine pH (5.0-8.0) Ur Specific [place] (1.001-1.035) Urine Protein (Negative) Urine Glucose (UA) (Negative) Urine Ketones (Negative) Urine Blood (Negative) Urine Nitrite (Negative) Urine Bilirubin (Negative) Urine Urobilinogen (<2.0) mg/dL Ur Leukocyte Esterase (Negative) Stool Occult Blood Positive (Negative) Coronavirus (PCR) (Not Detectd) Influenza Type A RNA (Not Detectd) Influenza Type B (PCR) (Not Detectd) - EKG Data -: EKG Interpreted by Me EKG Comments: 12-lead Electrocardiogram Interpretation Note EKG was reviewed and interpreted by myself. 12-lead ECG performed at 1902 is interpreted by me as revealing normal sinus rhythm at a rate of 96 beats per minute. [place] is normal. CA interval is 149 ms, QRS duration 76 ms, QTc is 380 ms.. There were no ST or T wave abnormalities to suggest myocardial ischemia or injury. R wave progression across the precordium was satisfactory. By my interpretation this EKG is non-diagnostic for acute ischemia. When compared with EKG from September 2019, no significant changes. Disposition Clinical Impression: GI bleed, Anemia, Weakness, Occult blood positive stool Disposition: ADMITTED IP TO THIS HOSP Condition: Stable Referrals: Ramya James DO [Primary Care Provider] - 1-2 days Time of Disposition: 21:40
--- NOTE | 2022-01-15 19:13 | XR ---
EXAMINATION TYPE: XR KUB DATE OF EXAM: 01/15/2022 6:56 PM INDICATION: Patient age:Male; 81 years old; Reason for study: eval for constipation; COMPARISON: CT abdomen pelvis 02/04/2020 TECHNIQUE: One radiographic view of the abdomen was obtained. FINDINGS: Left aspect of the abdomen and upper abdomen are nonspecific. The bowel gas pattern is nons pecific without dilated loops of small or large bowel. There is a moderate stool burden throughout th e colon. The osseous structures are intact. No abnormal calcifications are present. Fecal material a nd gas are demonstrated throughout the colon and rectum. Atherosclerosis of the arterial vasculature. IMPRESSION: Moderate stool burden with a Nonspecific bowel gas pattern without radiographic evidence for acute pr ocess.
--- NOTE | 2022-01-15 19:16 | XR ---
EXAMINATION TYPE: XR chest 2V DATE OF EXAM: 01/15/2022 6:55 PM COMPARISON: Chest radiographs from 09/12/2019. TECHNIQUE: XR chest 2V Frontal and lateral views of the chest. CLINICAL INDICATION:Male, 81 years old with history of Weakness; FINDINGS: Lungs/Pleura: There is no evidence of pleural effusion, focal consolidation, or pneumothorax. Pulmonary vascularity: Unremarkable. Heart/mediastinum: Cardiomediastinal silhouette is unremarkable. Musculoskeletal: No acute osseous pathology. Fixation hardware in the right shoulder. Hardware appear s intact. IMPRESSION: No acute cardiopulmonary disease/process.
[2022-01-15 19:43] LABS: Basophils % (A) 1 %; Eosinophils % (A) 1 %; HCT 28.8 % (39.0-53.0); HGB 10.1 gm/dL (13.0-17.5); Lymphocytes # (A) 0.6 k/uL (1.0-4.8); Lymphocytes % (A) 8 %; MCH 33.2 pg (25.0-35.0); MCHC 35.1 g/dL (31.0-37.0); MCV 94.5 fL (80.0-100.0); Mean Platelet Volume 10.2; Monocytes # (A) 0.3 k/uL (0-1.0); Monocytes % (A) 4 %; Neutrophils # (A) 6.5 k/uL (1.3-7.7); Neutrophils % (A) 87 %; Platelet Count 189 k/uL (150-450); RBC 3.05 m/uL (4.30-5.90); RDW 13.5 % (11.5-15.5); WBC 7.6 k/uL (3.8-10.6)
[2022-01-15 19:56] LABS: Albumin 3.8 g/dL (3.5-5.0); Calcium 9.1 mg/dL (8.4-10.2); Magnesium 2.1 mg/dL (1.6-2.3); Total Bilirubin 0.5 mg/dL (0.2-1.3); Total Protein 5.6 g/dL (6.3-8.2)
[2022-01-15 20:06] LABS: Partial Thromboplastin Time 21.7 sec (22.0-30.0); Prothrombin Time 10.7 sec (9.0-12.0)
[2022-01-15 20:08] LABS: Appearance,Urine Clear (Clear); Bilirubin,Urine Negative (Negative); Blood,Urine Negative (Negative); Color,Urine Light Yellow; Glucose,Urine (UA) Negative (Negative); Ketones,Urine 1+ (Negative); Leukocyte Esterase,Urine Negative (Negative); Nitrite,Urine Negative (Negative); Protein,Urine Negative (Negative); Specific Gravity,Urine 1.023 (1.001-1.035); Urobilinogen,Urine <2.0 mg/dL (<2.0)
--- NOTE | 2022-01-15 21:37 | CT ---
EXAMINATION TYPE: CT abdomen pelvis w con CT DLP: 2432.7 mGycm, Automated exposure control for dose reduction was used. DATE OF EXAM: 01/15/2022 9:16 PM COMPARISON: 02/04/2020 CT CLINICAL INDICATION:Male, 81 years old with history of GI bleed protocol; PAIN, WEAKNESS, R/O GI BLEE D TECHNIQUE: Axial CT of the abdomen and pelvis. Sagittal and coronal reformats were created on a [employer] workstation. Contrast used:100ML mL of Isovue 370 with IV Contrast, Oral contrast used: without Oral Contrast FINDINGS: CHEST: Fixation hardware in the right shoulder. Hardware appears intact. Atherosclerosis of the arter ial vasculature, at the carotid bifurcations and coronary arteries. Mild emphysema changes. The ascen ding aorta is a Damer limits normal measuring 3.9 cm. ABDOMEN LIVER: Unremarkable GALLBLADDER AND BILE DUCTS: Unremarkable. PANCREAS: Unremarkable. SPLEEN: Unremarkable. ADRENAL GLANDS: Unremarkable. KIDNEYS AND URETERS: No evidence of hydronephrosis or renal calculus. The ureters are unremarkable. PELVIS BLADDER: Unremarkable REPRODUCTIVE: Prostate is enlarged in size measuring 5.5 cm in transverse dimension. ABDOMEN & PELVIS STOMACH AND BOWEL: No evidence of bowel obstruction. No evidence for gastrointestinal hemorrhage. Sca ttered clonic diverticula. The caudal rectum measures up to 9 mm in thickness. PERITONEUM: No evidence of pneumoperitoneum or free fluid. VASCULATURE: Moderate atherosclerotic calcifications are present throughout the abdominal aorta and i ts branches. No evidence of aortic aneurysm. MUSCULOSKELETAL: No acute osseous abnormalities. Moderate disc degeneration changes are present throu ghout the thoracolumbar spine. LYMPH NODES: No gross evidence for lymphadenopathy. SOFT TISSUE/ABDOMINAL WALL: Unremarkable IMPRESSION: 1. No evidence for gastrointestinal hemorrhage. 2. Thickening of the caudal rectum/anus. Correlate for proctitis. 3. Clonic diverticulosis. 4. Prostatomegaly correlate serum PSA.
[2022-01-15] MEDS ORDERED: NALOXONE 0.4 MG/ML 1 ML VIAL IV PRN (21:45)
[2022-01-15] MEDS ORDERED: PANTOPRAZOLE 40 MG/10 ML VIAL IVP ONE (21:45)
[2022-01-15 23:14] VITALS: RESP 16
[2022-01-16 04:17] LABS: Basophils % (A) 1 %; Eosinophils % (A) 1 %; HCT 23.6 % (39.0-53.0); Lymphocytes # (A) 0.6 k/uL (1.0-4.8); Lymphocytes % (A) 12 %; MCH 34.5 pg (25.0-35.0); MCV 95.9 fL (80.0-100.0); Monocytes # (A) 0.3 k/uL (0-1.0); Monocytes % (A) 6 %; Neutrophils % (A) 79 %; Platelet Count 135 k/uL (150-450); RBC 2.46 m/uL (4.30-5.90); RDW 13.7 % (11.5-15.5)
[2022-01-16 04:19] LABS: HGB 8.5 gm/dL (13.0-17.5)
[2022-01-16 04:33] LABS: Calcium 8.2 mg/dL (8.4-10.2)
[2022-01-16] MEDS ORDERED: polyethylene glycoL 3350 17 GM POWD.PACK PO SCH (10:00)
[2022-01-16] MEDS ORDERED: PANTOPRAZOLE 40 MG/10 ML VIAL IVP SCH (10:15)
[2022-01-16 12:25] VITALS: BP 130/72; PULSE 77; TEMP 97.8
--- NOTE | 2022-01-16 13:05 | P.CONS ---
History of Present Illness - Reason for Consult Consult date: 01/16/22 Dark stools, occult blood positive Requesting physician: Kleber Hernandez - Chief Complaint Shortness of breath, weakness - History of Present Illness This is a pleasant 81-year-old male with a past medical history for myocardial infarction, hypertension, prostate cancer, recent Covid infection within the last one months duration who presented to the emergency department complaining of weakness and shortness of breath since his diagnosis of Covid. He also came in with complaints of constipation. States he has had chronic constipation, last bowel movement was yesterday but it was just small. He denies any blood in his stool but or rectal bleeding but states he has noticed dark stools for the last 1 week duration. He denies any associated abdominal pain, cramping, nausea, or vomiting. Patient came in with a hemoglobin of 10.1 with a drop to 8.5 today, gastroenterology was consulted for possible GI bleed. Patient does take Plavix for history of coronary artery disease with stent. Last taken yesterday. He denies any other anticoagulation. He does take daily low-dose aspirin as well as Aleve occasionally. Denies any history of peptic ulcer disease, upper GI bleed, or GERD. He was noted also to have an elevated BUN on admission of 51, will repeat today 46. Patient does have a history of rectal bleeding in the past and has undergone colonoscopy on 03/24/2020 as well as 09/08/[address] Burns with findings of colon polyp at the hepatic flexure status post polypectomy. Patient had a CT of the abdomen and pelvis with contrast on admission that showed no evidence for gastrointestinal hemorrhage. Thickening of the caudal rectum/anus. Correlate for proctitis. Colonic diverticulosis. Prostatomegaly correlate serum PSA Review of Systems REVIEW OF SYSTEMS: CARDIOPULMONARY: No chest pain. Complaints of shortness of breath and dyspnea with exertion. Gastrointestinal: No abdominal pain. No nausea or vomiting. No hematemesis, coffee-ground emesis. No rectal bleeding, does complain of dark stools 1 week duration. Constipation, chronic. GENITOURINARY: No dysuria or hematuria. MUSCULOSKELETAL: Reports normal range of motion. SKIN: No rashes. No jaundice. ENDOCRINE: No chills, fevers. No excessive weight gain or loss. No polydipsia or polyuria. PSYCHIATRIC: Unremarkable. NEUROLOGY: No change in mental status. Denies dizziness, headache. ENT: Vision unremarkable. CONSTITUTIONAL: No recent weight loss. No fever, chills, night sweats. Increased weakness. Past Medical History Past Medical History: Cancer, Hyperlipidemia, Hypertension, Myocardial Infa rction ([place]), Prostate Disorder Additional Past Medical History / Comment(s): rectal bleeding since March after a colonoscopy, hx. prostate cancer >1 year ago-had radiation & surg. but not removal of Last Myocardial Infarction Date:: 2000 History of Any Multi-Drug Resistant Organisms: None Reported Past Surgical History: Heart Catheterization, Heart Catheterization With Stent, Orthopedic Surgery, Tonsillectomy Additional Past Surgical History / Comment(s): JONY SHOULDER SURGERIES, VASECTOMY, . HEART CATH WITH STENT FEB 2001, HEART CATH 2001, 2002 & 2008, prostate surg., colonoscopy in [place]. Past Anesthesia/Blood Transfusion Reactions: No Reported Reaction Date of Last Stent Placement:: FEBRUARY 2001 Past Psychological History: No Psychological Hx Reported Smoking Status: Former smoker - Past Family History Mother Family Medical History: No Reported History Medications and Allergies Home Medications Medication Instructions Recorded Confirmed Type Clopidogrel [Plavix] 75 mg PO DAILY 04/15/17 01/16/22 History Folic Acid 1 mg PO DAILY #30 tab 09/15/19 01/16/22 Rx Aspirin EC [Ecotrin Low Dose] 81 mg PO DAILY 01/16/22 01/16/22 History Donepezil [Aricept] 10 mg PO HS 01/16/22 01/16/22 History Famotidine 40 mg PO DAILY 01/16/22 01/16/22 History Valsartan 160 mg PO Q7D 01/16/22 01/16/22 History Allergies Allergy/AdvReac Type Severity Reaction Status Date / Time Thxhofj-GIL-MoS Reductase AdvReac LEG CRAMPS Verified 01/16/22 09:40 Inhibitor [Pvxkuda-Rnn-Kjb Reductase Inhibitor] Physical Exam Vitals: Vital Signs Temp Pulse Pulse Resp BP BP Pulse Ox 01/16/22 06:44 98.9 F 61 16 119/69 97 01/16/22 05:31 97.6 F 80 16 135/80 95 01/16/22 00:37 90 16 123/79 95 01/15/22 23:26 98.1 F 118 H 16 125/72 100 01/15/22 23:13 98.2 F 96 16 136/87 98 01/15/22 21:02 98.0 F 98 18 140/78 99 01/15/22 16:51 98.4 F 110 H 20 138/77 100 Intake and Output 01/15/22 01/16/22 01/16/22 22:59 06:59 14:59 Intake Total 540 Balance 540 Intake: Oral 540 Other: # Voids 2 Weight 72.575 kg General appearance: The patient is alert, oriented, appears in no acute distress. HET: Head is normocephalic and atraumatic. Conjunctiva pink. Sclera anicteric. Neck: Supple without lymphadenopathy. Trachea midline. Heart: S1 S2. Regular rate and rhythm. Lungs: Clear to auscultation. Abdomen: Soft, nontender, nondistended with bowel sounds. No guarding or rigidity. Skin: No rashes. No jaundice. Extremities: Normal skin color and turgor. No pedal edema. Neurological: No focal deficits. Alert and oriented x3. Results CBC & Chem 7: 01/16/22 04:06 01/16/22 04:06 Labs: Abnormal Lab Results - Last 24 Hours (Table) 01/15/22 01/15/22 01/15/22 Range/Units 19:13 19:13 19:13 RBC 3.05 L (4.30-5.90) m/uL Hgb 10.1 L (13.0-17.5) gm/dL Hct 28.8 L (39.0-53.0) % Plt Count (150-450) k/uL Lymphocytes # 0.6 L (1.0-4.8) k/uL APTT 21.7 L (22.0-30.0) sec D-Dimer 0.63 H (<0.60) mg/L FEU Sodium 136 L (137-145) mmol/L Chloride 108 H (98-107) mmol/L Carbon Dioxide 21 L (22-30) mmol/L BUN 51 H (9-20) mg/dL Glucose 135 H (74-99) mg/dL Calcium (8.4-10.2) mg/dL Total Protein 5.6 L (6.3-8.2) g/dL Urine Ketones (Negative) 11/14/22 11/15/22 11/15/22 Range/Units 19:14 04:06 04:06 RBC 2.46 L (4.30-5.90) m/uL Hgb 8.5 L D (13.0-17.5) gm/dL Hct 23.6 L (39.0-53.0) % Plt Count 135 L (150-450) k/uL Lymphocytes # 0.6 L (1.0-4.8) k/uL APTT (22.0-30.0) sec D-Dimer (<0.60) mg/L FEU Sodium (137-145) mmol/L Chloride 109 H (98-107) mmol/L Carbon Dioxide (22-30) mmol/L BUN 46 H (9-20) mg/dL Glucose 123 H (74-99) mg/dL Calcium 8.2 L (8.4-10.2) mg/dL Total Protein (6.3-8.2) g/dL Urine Ketones 1+ H (Negative) Comments: CT of the abdomen and pelvis with contrast on admission that showed no evidence for gastrointestinal hemorrhage. Thickening of the caudal rectum/anus. Correlate for proctitis. Colonic diverticulosis. Prostatomegaly correlate serum PSA Assessment and Plan (1) Symptomatic anemia Narrative/Plan: There is an 81-year-old male with multiple comorbidities including coronary artery disease with history of stent on Plavix, occasional use of Aleve who presented to the emergency department with increased shortness of breath, and weakness. He was found to have a hemoglobin of 10.1 on admission with a drop to 8.5 today. Also reporting black stools for last 1 week duration with a positive occult stool. Patient has no previous history of peptic ulcer disease, or GI bleed. He does occasionally take Aleve, he was recently started on a low-dose aspirin and takes Plavix again for coronary artery disease. Patient also presented with an elevated BUN which also can be consistent with an upper GI bleed. Unclear etiology, possibilities include peptic ulcer disease, gastritis, esophagitis, AVM or other etiologies. Looking back at patient's history does appear to have some history of alcohol use. Also need to consider possible underlying esophageal appears either gastritis. At this time it was discussed with patient to proceed with EGD, however patient has been on Plavix. He does not appear to have active GI bleed at this time, patient is declining any endoscopic evaluation at this time. Recommend outpatient follow-up with EGD. Current Visit: Yes Status: Acute Code(s): D64.9 - ANEMIA, UNSPECIFIED SNOMED Code(s): 556367822 (2) Melena Current Visit: Yes Status: Acute Code(s): K92.1 - MELENA SNOMED Code(s): 8268484 (3) Occult blood positive stool Current Visit: Yes Status: Acute Code(s): R19.5 - OTHER FECAL ABNORMALITIES SNOMED Code(s): 08818443 (4) Weakness Current Visit: Yes Status: Acute Code(s): R53.1 - WEAKNESS SNOMED Code(s): 00219645 Plan: 1. Continue symptomatic and supportive care 2. Protonix 40 mg twice a day 3. Daily CBC, transfuse for hemoglobin less than 7 4. Avoid NSAIDs 5. Recommend alcohol ABSTINENCE 6. Recommend proceeding with EGD to evaluate possible upper GI blood source, patient declining endoscopic evaluation at this time. It would be reasonable for patient to schedule follow-up with gastroenterology and outpatient EGD. Thank you for this consultation, we will continue to follow. Dr. Moody Mckeon I agree with the dictator's note, documented as a scribe by Amanda Looney.
--- NOTE | 2022-01-16 18:47 | P.HPIM ---
History of Present Illness H&P Date: 01/16/22 Chief Complaint: Constipation, black stools, increasing weakness History and Physical and Discharge Summary: This is an 81-year-old gentleman with past medical history of CAD, [place], cardiac stents on Plavix, hypertension, prostate cancer, history of alcohol abuse states he quit drinking 1 month ago, recent covid infection 1 month ago, admitted with increasing generalized weakness, constipation, black stools. Denies nausea, vomiting, diarrhea. Denies abdominal pain. Denies falls, sweats, chills, shortness of breath, chest pain. Denies lightheadedness dizziness or focal deficits. Reports last bowel movement was the evening before he came into ER and it was small ,hard and dark. Denies any hemoptysis or bright red rectal bleeding. Reports problems with constipation since Covid accompanied by a decreased appetite. Reports last colonoscopy was March 2021 was reported normal .On admission hemoglobin 10.1, decreased to 8.5 today. Patient reports he does take Aleve, occasionally. BUN 46, creatinine 1.03. Stool for occult blood positive. Tested negative for asencio virus, influenza type A and B. CT of abdomen and pelvis reported no evidence of GI hemorrhage, thickening of the caudal rectum/anus, correlate for proctitis, colonic diverticulosis, prostatomegaly-measuring 5.5 cm. Ascending aorta 3.9 cm. Past Medical History Past Medical History: Cancer, Hyperlipidemia, Hypertension, Myocardial Infarction ([place]), Prostate Disorder Additional Past Medical History / Comment(s): rectal bleeding since March after a colonoscopy, hx. prostate cancer >1 year ago-had radiation & surg. but not removal of Last Myocardial Infarction Date:: 2000 History of Any Multi-Drug Resistant Organisms: None Reported Past Surgical History: Heart Catheterization, Heart Catheterization With Stent, Orthopedic Surgery, Tonsillectomy Additional Past Surgical History / Comment(s): JONY SHOULDER SURGERIES, VASECTOMY, . HEART CATH WITH STENT FEB 2001, HEART CATH 2001, 2002 & 2008, prostate surg., colonoscopy in Past Anesthesia/Blood Transfusion Reactions: No Reported Reaction Date of Last Stent Placement:: FEBRUARY 2001 Past Psychological History: No Psychological Hx Reported Smoking Status: Former smoker - Past Family History Mother Family Medical History: No Reported History Medications and Allergies Home Medications Medication Instructions Recorded Confirmed Type Clopidogrel [Plavix] 75 mg PO DAILY 04/15/17 01/16/22 History Folic Acid 1 mg PO DAILY #30 tab 09/15/19 01/16/22 Rx Aspirin EC [Ecotrin Low Dose] 81 mg PO DAILY 01/16/22 01/16/22 History Donepezil [Aricept] 10 mg PO HS 01/16/22 01/16/22 History Famotidine 40 mg PO DAILY 01/16/22 01/16/22 History Valsartan 160 mg PO Q7D 01/16/22 01/16/22 History polyethylene glycoL 3350 [Miralax] 17 gm PO DAILY packet 01/16/22 Rx Allergies Allergy/AdvReac Type Severity Reaction Status Date / Time Ztsnqon-WPK-CfW Reductase AdvReac LEG CRAMPS Verified 01/16/22 09:40 Inhibitor [Fkxpckj-Byg-Rvn Reductase Inhibitor] Physical Exam Vitals: Vital Signs Temp Pulse Pulse Resp BP BP Pulse Ox 01/16/22 06:44 98.9 F 61 16 119/69 97 01/16/22 05:31 97.6 F 80 16 135/80 95 01/16/22 00:37 90 16 123/79 95 01/15/22 23:26 98.1 F 118 H 16 125/72 100 01/15/22 23:13 98.2 F 96 16 136/87 98 01/15/22 21:02 98.0 F 98 18 140/78 99 01/15/22 16:51 98.4 F 110 H 20 138/77 100 Intake and Output 01/15/22 01/16/22 01/16/22 22:59 06:59 14:59 Intake Total 540 Balance 540 Intake: Oral 540 Other: # Voids 2 Weight 72.575 kg - Exam PHYSICAL EXAMINATION: Patient is lying in the bed comfortably, no acute distress. HEENT: Normocephalic. Neck is supple. Pupils reactive. Neck supple,no JVD, carotid bruits, or thyromegaly. CHEST EXAMINATION: Unlabored, Lung andres clear. CARDIAC: Normal S1, S2 with no gallops. No murmurs ABDOMEN: Soft, nondistended, diffuse upper quadrants tenderness, no guarding. Bowel sounds normal. Extremities: no edema. No clubbing or cyanosis Neurological: Cranial nerves II-12 grossly intact. No focal deficits noted Skin: Warm and dry, no rash Results CBC & Chem 7: 01/16/22 04:06 11/15/22 04:06 Labs: Abnormal Lab Results - Last 24 Hours (Table) 01/15/22 01/15/22 01/15/22 Range/Units 19:13 19:13 19:13 RBC 3.05 L (4.30-5.90) m/uL Hgb 10.1 L (13.0-17.5) gm/dL Hct 28.8 L (39.0-53.0) % Plt Count (150-450) k/uL Lymphocytes # 0.6 L (1.0-4.8) k/uL APTT 21.7 L (22.0-30.0) sec D-Dimer 0.63 H (<0.60) mg/L FEU Sodium 136 L (137-145) mmol/L Chloride 108 H (98-107) mmol/L Carbon Dioxide 21 L (22-30) mmol/L BUN 51 H (9-20) mg/dL Glucose 135 H (74-99) mg/dL Calcium (8.4-10.2) mg/dL Total Protein 5.6 L (6.3-8.2) g/dL Urine Ketones (Negative) 01/15/22 01/16/22 01/16/22 Range/Units 19:14 04:06 04:06 RBC 2.46 L (4.30-5.90) m/uL Hgb 8.5 L D (13.0-17.5) gm/dL Hct 23.6 L (39.0-53.0) % Plt Count 135 L (150-450) k/uL Lymphocytes # 0.6 L (1.0-4.8) k/uL APTT (22.0-30.0) sec D-Dimer (<0.60) mg/L FEU Sodium (137-145) mmol/L Chloride 109 H (98-107) mmol/L Carbon Dioxide (22-30) mmol/L BUN 46 H (9-20) mg/dL Glucose 123 H (74-99) mg/dL Calcium 8.2 L (8.4-10.2) mg/dL Total Protein (6.3-8.2) g/dL Urine Ketones 1+ H (Negative) Thrombosis Risk Factor Assmnt - Choose All That Apply Any of the Below Risk Factors Present?: Yes Other Risk Factors: Yes Each Risk Factor Represents 3 Points: Age 75 years or older Thrombosis Risk Factor Assessment Total Risk Factor Score: 3 Thrombosis Risk Factor Assessment Level: Moderate Risk Assessment and Plan Assessment: Constipation, increased weakness, black stools Anemia, symptomatic, GI following Colonic diverticulosis History of alcohol abuse and daily basis, reports he quit 1 month ago Hypertension History of NM Coronary arteries status post stent placement Chronic back pain Hyperlipidemia Previous history of smoking BPH Prostatomegaly, correlate serum PSA outpatient in clinic with PCP Plan: Continue on current medication regime ,monitoring and symptomatic treatm ent. Evaluated by GI, recommending EGD. Patient at this time declining any endoscopy procedure. Patient insistent on discharge home; advised to follow-up outpatient for EGD. Repeat CBC, BMP outpatient . Patient will be discharged home today in a stable condition with guarded prognosis. Discharge Medication List Clopidogrel [Plavix] 75 mg PO DAILY 04/15/17 [History] Folic Acid 1 mg PO DAILY #30 tab 09/15/19 [Rx] Donepezil [Aricept] 10 mg PO HS 01/16/22 [History] Pantoprazole Sodium [Protonix] 40 mg PO BID #60 tab 01/16/22 [Rx] Valsartan 160 mg PO Q7D 01/16/22 [History] polyethylene glycoL 3350 [Miralax] 17 gm PO DAILY packet 01/16/22 [Rx] The impression and plan of care has been dictated as directed. : I performed a history and examination of this patient, discussed the same with the dictator. I agree with the dictator's note ,documented as a scribe. Any additional findings or plans will be noted.
== END 2022-01-16 16:18 | disposition home or self-care (01) ==
LOC: EC 16:27 → 5NMEDONC 21:46
PROVIDERS: ADMIT Family Medicine; ATTEND Family Medicine
DX: D64.9 Anemia, unspecified (principal); K92.1 Melena; R53.1 Weakness; K59.00 Constipation, unspecified; K57.30 Diverticulosis of large intestine without perforation or abscess without bleeding; G89.29 Other chronic pain; M54.9 Dorsalgia, unspecified; N40.0 Benign prostatic hyperplasia without lower urinary tract symptoms; F10.11 Alcohol abuse, in remission; I25.2 Old myocardial infarction; I10 Essential (primary) hypertension; I25.10 Atherosclerotic heart disease of native coronary artery without angina pectoris; E78.5 Hyperlipidemia, unspecified; Z85.46 Personal history of malignant neoplasm of prostate; Z86.16 Personal history of COVID-19; Z87.891 Personal history of nicotine dependence; Z95.5 Presence of coronary angioplasty implant and graft; Z79.02 Long term (current) use of antithrombotics/antiplatelets; Z79.82 Long term (current) use of aspirin; Z79.899 Other long term (current) drug therapy; Z20.822 Contact with and (suspected) exposure to COVID-19
CPT/HCPCS: 96376; 96361; 96374; 99285; 36415; 94760; 93005; 85379; 83880; 80053; 80048; 83605; 83735; 84484; 85025 ×2; 85610; 85730; 82272; 81003; 87040; 87502; 87635; 71046; 74018; 74177; G0378 ×2; C9113 ×2; Q9967